=== PATIENT | male | born 1965 | race African-American/Black ===

== ENCOUNTER 2017-03-24 11:01 | Emergency (ER) | payer MEDICARE ==
--- NOTE | 2017-03-24 11:28 | ER Document Report ---
ED General - General Mode of Arrival: Ambulatory Information source: Patient, [facility] Records TRAVEL OUTSIDE OF THE [place] IN LAST 30 DAYS: No - HPI Patient complains to provider of: Chest Pain Onset: Other - 4-5 days ago Onset/Duration: Intermittent Quality of pain: Pressure Associated symptoms: Shortness of breath, Other - Difficulty breathing, Indigestion Relieved by: Supine <LYNETTE AGEE - Last Filed: 03/24/17 11:32> <CASA KIRBY - Last Filed: 03/24/17 20:31> - General Chief Complaint: Chest Pain Stated Complaint: HEART PROBLEMS Notes: Patient is a 51-year-old male, with history of CHF, hypertension, and LA, presenting to the emergency department concerned of chest pain onset 4-5 days ago. Patient describes the pain as pressure, and states that it has been present daily, but intermittent. Patient states that it is particularly bad at night when he lays down to sleep. He has difficulty sleeping secondary to difficulty breathing from the chest pressure. Patient states that it feels like when he had heart failure, but this time there is no swelling of extremities. Patient also admits to indigestion, for which he takes a medication that begins with the letter R, possibly Reglan, but he cannot remember definitively. PCP: Dr. Cisneros. (LYNETTE AGEE) - Related Data Allergies/Adverse Reactions: Penicillins Allergy (Verified 07/18/16 09:01) Past Medical History - General Information source: Patient, [facility] Records - Social History Smoking Status: Never Smoker Family History: Reviewed & Not Pertinent - Past Medical History Cardiac Medical History: Reports: Hx Congestive Heart Failure, Hx Coronary Artery Disease, Hx Heart Attack - most recent 2009, Hx Hypercholesterolemia, Hx Hypertension Past Surgical History: Reports: Hx Cardiac Surgery - Defibrilator, Hx Coronary Stent - 3 stents <LYNETTE AGEE - Last Filed: 03/24/17 11:32> Review of Systems - Review of Systems Constitutional: No symptoms reported EENT: No symptoms reported Cardiovascular: See HPI, Chest pain - Pressure Respiratory: See HPI, Short of breath, Other - Difficulty breathing while supine Gastrointestinal: See HPI, Other - Indigestion Genitourinary: No symptoms reported Male Genitourinary: No symptoms reported Musculoskeletal: No symptoms reported Skin: No symptoms reported Hematologic/Lymphatic: No symptoms reported Neurological/Psychological: No symptoms reported -: Yes All other systems reviewed and negative <LYNETTE AGEE - Last Filed: 03/24/17 11:32> Physical Exam - General General appearance: Alert - HEENT Head: Normocephalic, Atraumatic Eyes: Normal Pupils: PERRL - Respiratory Respiratory status: No respiratory distress Chest status: Other - Dysthymic Breath sounds: Normal - Cardiovascular Rhythm: Regular Heart sounds: Normal auscultation Murmur: No - Abdominal Inspection: Morbidly Obese Tenderness: Nontender - Back Back: Normal, Nontender - Extremities General upper extremity: Normal inspection, Nontender. No: Edema General lower extremity: Normal inspection, Nontender. No: Edema - Neurological Neuro grossly intact: Yes Cognition: Normal Orientation: AAOx4 [place] Coma Scale Eye Opening: Spontaneous [place] Coma Scale Verbal: Oriented Marii Coma Scale Motor: Obeys Commands [place] Coma Scale Total: 15 Speech: Normal - Psychological Associated symptoms: Normal affect, Normal mood - Skin Skin Temperature: Warm Skin Moisture: Dry Skin Color: Normal <LYNETTE AGEE - Last Filed: 03/24/17 11:32> Course <CYNDIELYNETTE - Last Filed: 03/24/17 11:32> - Laboratory Result Diagrams: 03/24/17 11:40 03/24/17 12:54 - Diagnostic Test Radiology reviewed: Reports reviewed - EKG Interpretation by Me EKG shows normal: [place]. abnormal: Intervals - Borderline prolonged QT interval , QRS Complexes - Old inferior LA. Borderline R-wave progression., ST-T Waves Rate: Normal - 96 Rhythm: A.Fib When compared to previous EKG there are: No significant change - Consults Dr. Padilla Time consulted: 18:35 Consulted provider: other - Requests bilateral lower extremity venous Dopplers, then will decide on treatment. <CASA KIRBY - Last Filed: 03/24/17 20:31> - Re-evaluation Re-evalutation: 03/24/17 18:48 Several attempts were made to get a CTA of the chest after a d-dimer came back at 3.28. IVs were started at least twice using ultrasound and the antecubital region. One kinked off when the patient flexed his arm. Second 1 was functioning fine when he went to CT and it blew when they injected the contrast. Given the difficulty in getting IVs, a pulmonary VQ scan was done. The scan was read as normal. (CASA KIRBY) - Vital Signs Vital signs: Temp Pulse Resp BP Pulse Ox 98.1 F 63 21 H 119/80 97 03/24/17 11:23 03/24/17 11:23 03/24/17 11:35 03/24/17 11:35 03/24/17 11:35 - Laboratory Laboratory results interpreted by me: 03/24/17 03/24/17 03/24/17 11:40 11:40 12:54 Hgb 13.0 L RDW 14.5 H D-Dimer 3.28 H Potassium 5.2 H BUN 28 H Creatinine 1.38 H Est GFR (Non-Af Amer) 55 L Creatine Kinase 221 H NT-Pro-B Natriuret Pep 03/24/17 12:54 Hgb RDW D-Dimer Potassium BUN Creatinine Est GFR (Non-Af Amer) Creatine Kinase NT-Pro-B Natriuret Pep 3930 H Discharge <LYNETTE AGEE - Last Filed: 03/24/17 11:32> <CASA KIRBY - Last Filed: 03/24/17 20:31> - Discharge Clinical Impression: Elevated d-dimer Chest pain Qualifiers: Chest pain type: unspecified Qualified Code(s): R07.9 - Chest pain, unspecified Dyspnea Qualifiers: Dyspnea type: shortness of breath Qualified Code(s): R06.02 - Shortness of breath Atrial fibrillation Qualifiers: Atrial fibrillation type: chronic Qualified Code(s): I48.2 - Chronic atrial fibrillation Condition: Stable Disposition: HOME, SELF-CARE Additional Instructions: Chest Pain of Unclear Cause: The exact cause of your chest pain isn't clear. Fortunately, there is no evidence of a dangerous medical condition. Further testing may be required to find the source of the pain. Most often, we find that this pain is coming from the chest wall -- the muscles or rib joints in the chest. But chest pain can come from the lung and lung lining, the esophagus, the heart valves or heart lining, and even the stomach or gallbladder. Rest. Eat lightly until the pain is gone. We may prescribe medicine for pain and inflammation. You should call the physician immediately if the pain radiates to the shoulder, jaw or arms; if you start to run a fever or develop a cough; or if you develop shortness of breath, or other new or alarming symptoms. Dyspnea, Nonspecific: You were evaluated for shortness of breath, or dyspnea. Dyspnea has many causes, and some are more serious than others. Sometimes it's impossible to diagnose the cause of dyspnea with the tests that are available on an emergency basis. Based on our evaluation today, you do not need hospitalization now. We found no evidence of pneumonia, collapsed lung, blood clots in the lung, tumors , or heart failure. Causes of non-specific dyspnea can include asthma or bronchospasm, hyperventilation, emotional distress, heart disease, emphysema, fibrosis of the lung, and stiffness of the chest wall. In healthy individuals with a single episode, it's sometimes reasonable to do nothing but wait to see if the problem occurs again. Additional tests used to evaluate dyspnea can include cardiac stress testing, echocardiography, pulmonary function testing, CAT scan of the chest, bronchoscopy or pulmonary biopsy. Return if shortness of breath persists or worsens, or if you develop chest pain, fever, cough, confusion, or fainting. TAKE THE MEDICATION PRESCRIBED. FOLLOW UP WITH DR. PADILLA IN THE NEXT 1 TO 2 DAYS FOR RECHECK. RETURN TO THE EMERGENCY ROOM IF ANY NEW OR WORSENING SYMPTOMS. Prescriptions: Apixaban [Eliquis 5 mg Tablet] 5 mg PO BID #60 tablet Referrals: JIA PADILLA MD [Primary Care Provider] - Follow up in 3-5 days Scribe Attestation: 03/24/17 20:31 I personally performed the services described in the documentation, reviewed and edited the documentation which was dictated to the scribe in my presence, and it accurately records my words and actions. (CASA KIRBY) Scribe Documentation - Scribe Written by Jerrod:: Jerrod Dawkins, 03/24/2017 [id number] acting as scribe for :: Robel <LYNETTE AGEE - Last Filed: 03/24/17 11:32>
[2017-03-24 11:55] LABS: ABSOLUTE BASOPHILS # (AUTO) 0.1 10^3/uL (0.0-0.2); ABSOLUTE EOSINOPHILS # (AUTO) 0.1 10^3/uL (0.0-0.6); ABSOLUTE LYMPHOCYTES (AUTO) 1.9 10^3/uL (0.5-4.7); ABSOLUTE MONOCYTES (AUTO) 0.7 10^3/uL (0.1-1.4); BASOPHILS % (AUTO) 1.6 % (0-2); EOSINOPHILS % (AUTO) 1.7 % (0-6); HEMATOCRIT 39.1 % (37.9-51.0); HGB HCT DIFFERENCE -0.1; LYMPHOCYTES % (AUTO) 33.1 % (13-45); MEAN CORPUSCULAR HEMOGLOBIN 28.6 pg (27.0-33.4); MEAN CORPUSCULAR HGB CONC 33.3 g/dL (32.0-36.0); MEAN CORPUSCULAR VOLUME 86 fl (80-97); MONOCYTES % (AUTO) 12.2 % (3-13); RED BLOOD COUNT 4.56 10^6/uL (4.35-5.55); RED CELL DISTRIBUTION WIDTH 14.5 % (11.5-14.0); SEGMENTED NEUTROPHILS % (AUTO) 51.4 % (42-78); WHITE BLOOD COUNT 5.9 10^3/uL (4.0-10.5)
--- NOTE | 2017-03-24 11:56 | EKG REPORT ---
SEVERITY:- ABNORMAL ECG - ATRIAL FIBRILLATION, V-RATE 73-142 INFERIOR INFARCT, AGE INDETERMINATE BORDERLINE R WAVE PROGRESSION, ANTERIOR LEADS LATERAL LEADS ARE ALSO INVOLVED BORDERLINE PROLONGED QT INTERVAL : Confirmed by: Christiano Diamond MD 24-Mar-2017 11:55:22
--- NOTE | 2017-03-24 12:09 | RADIOLOGY REPORT (SQ) ---
EXAM DESCRIPTION: CHEST SINGLE VIEW COMPLETED DATE/TIME: 03/24/2017 11:48 am REASON FOR STUDY: SOB, chest pressure COMPARISON: None. EXAM PARAMETERS: NUMBER OF VIEWS: One view. TECHNIQUE: Single frontal radiographic view of the chest acquired. RADIATION DOSE: NA LIMITATIONS: None. FINDINGS: LUNGS AND PLEURA: No opacities, masses or pneumothorax. No pleural effusion. MEDIASTINUM AND HILAR STRUCTURES: No masses. Contour normal. HEART AND VASCULAR STRUCTURES: Heart normal in size. Normal vasculature. BONES: No acute findings. HARDWARE: AICD device is unchanged in position. OTHER: No other significant finding. IMPRESSION: No significant interval change. No acute findings. Other findings as noted above. TECHNICAL DOCUMENTATION: JOB ID: [id number]
[2017-03-24 13:21] LABS: ALANINE AMINOTRANSFERASE 47 U/L (21-72); ALBUMIN 4.2 g/dL (3.5-5.0); ALKALINE PHOSPHATASE 56 U/L (38-126); ANION GAP 14 (5-19); ASPARTATE AMINO TRANSFERASE 24 U/L (17-59); BILIRUBIN,DIRECT 0.3 mg/dL (0.0-0.4); BILIRUBIN,TOTAL 0.6 mg/dL (0.2-1.3); BLOOD UREA NITROGEN 28 mg/dL (7-20); CALCIUM 9.4 mg/dL (8.4-10.2); CARBON DIOXIDE 24 mmol/L (22-30); CHLORIDE 106 mmol/L (98-107); CREATINE KINASE 221 U/L (55-170); CREATININE RESULT 1.38 mg/dL (0.52-1.25); GLUCOSE 95 mg/dL (75-110); MAGNESIUM 2.2 mg/dL (1.6-2.3); POTASSIUM 5.2 mmol/L (3.6-5.0); SODIUM 143.6 mmol/L (137-145); TOTAL PROTEIN 7.7 g/dL (6.3-8.2)
[2017-03-24 13:33] LABS: CREATINE KINASE MB 0.76 ng/mL (<4.55); TROPONIN I < 0.012 ng/mL
--- NOTE | 2017-03-24 17:55 | RADIOLOGY REPORT (SQ) ---
EXAM DESCRIPTION: NM LUNG VENT/PERF SCAN COMPLETED DATE/TIME: 03/24/2017 5:44 pm REASON FOR STUDY: SOB, elevated D-dimer COMPARISON: None. RADIONUCLIDE AND DOSE: 5 millicuries TC-99m MAA 30 millicuries TC-99m DTPA aerosol TECHNIQUE: Eight views of the lungs acquired post ventilation of DTPA aerosol. AP and PA views of t he lungs acquired following injection of MAA. LIMITATIONS: None. FINDINGS: VENTILATION: Symmetric and homogeneous distribution of DTPA aerosol during ventilatory pha se. No significant areas of photopenia. PERFUSION: Perfusion images with normal homogenous activity and no wedge-shaped or segmental defects. No ventilation-perfusion mismatches. OTHER: No other significant finding. IMPRESSION: NORMAL VENTILATION-PERFUSION LUNG SCAN. NEGATIVE FOR PULMONARY EMBOLI. TECHNICAL DOCUMENTATION: JOB ID: [id number] [employer]- All Rights Reserved
[2017-03-24] MEDS ORDERED: APIXABAN 5 MG TABLET PO ONE (20:24)
[2017-03-24 20:49] VITALS: BP 108/85
--- NOTE | 2017-03-24 20:59 | RADIOLOGY REPORT (SQ) ---
EXAM DESCRIPTION: VENOUS BILATERAL LOWER COMPLETED DATE/TIME: 03/24/2017 8:30 pm REASON FOR STUDY: SOB, elevated D-dimer COMPARISON: None. TECHNIQUE: Dynamic and static gonzalez scale and color images acquired of both lower extremity venous sy stems. Selected spectral images acquired with additional compression and augmentation maneuvers. Imag es stored on PACS. LIMITATIONS: None. FINDINGS: RIGHT LEG COMMON FEMORAL AND FEMORAL: Normal phasicity, compression and augmentation. No visualized echogenic m aterial on gonzalez scale. No defects on color images. POPLITEAL: Normal compression and augmentation. No visualized echogenic material on gonzalez scale. No de fects on color images. CALF VESSELS: Normal compression and augmentation. No visualized echogenic material on gonzalez scale. No defects on color image. GSV AND SSV: Normal compression. No visualized echogenic material on gonzalez scale. No defects on color images. ANY DEEP VENOUS INSUFFICIENCY: Not evaluated. ANY EVIDENCE OF POPLITEAL CYST: No. OTHER: No other significant finding. LEFT LEG COMMON FEMORAL AND FEMORAL: Normal phasicity, compression and augmentation. No visualized echogenic m aterial on gonzalez scale. No defects on color images. POPLITEAL: Normal compression and augmentation. No visualized echogenic material on gonzalez scale. No de fects on color images. CALF VESSELS: Normal compression and augmentation. No visualized echogenic material on gonzalez scale. No defects on color images. GSV AND SSV: Normal compression. No visualized echogenic material on gonzalez scale. No defects on color images. ANY DEEP VENOUS INSUFFICIENCY: Not evaluated. ANY EVIDENCE POPLITEAL CYST: No. OTHER: No other significant finding. IMPRESSION: NO EVIDENCE DVT OR SVT IN EITHER LEG. TECHNICAL DOCUMENTATION: JOB ID: [id number] [employer]- All Rights Reserved
== END 2017-03-24 20:49 | disposition home or self-care (01) ==
LOC: ER 11:01
DX: R79.1 Abnormal coagulation profile (principal); R07.9 Chest pain, unspecified; R06.00 Dyspnea, unspecified; R06.02 Shortness of breath; I48.2 Chronic atrial fibrillation; E66.01 Morbid (severe) obesity due to excess calories; I11.0 Hypertensive heart disease with heart failure; I50.9 Heart failure, unspecified; I25.2 Old myocardial infarction; Z88.0 Allergy status to penicillin
CPT/HCPCS: 93005; 99285; 36415; 82553; 82550; 83735; 85025; 80053; 84484; 85379; 83880; 93970; 71010; 78582; 93010; A9540; A9567; A9270; Q9969

== ENCOUNTER 2017-03-29 12:49 | Inpatient (IN) | payer MEDICARE ==
--- NOTE | 2017-03-29 13:19 | ER Document Report ---
ED Dizziness/Weakness - General Chief Complaint: Syncope Stated Complaint: DIZZINESS Time Seen by Provider: 03/29/17 13:16 Mode of Arrival: Medic Information source: Patient Notes: Pt is a 51 year old male with a history of hypertension, congestive heart failure, who presents to the ER via ems today for syncopal episode prior to arrival. Patient states that he felt fine this morning, was at home and took his [id number]-vbu-vzdzgoj gout medicine with Tylenol and Tums all at the same time, and almost immediately started feeling hot, lightheaded, started sweating and then woke up on the floor sometime later. No one was at home with him to witness this episode, he has no idea how long he was on the floor. He has never passed out before, he is taking all 3 of these medications before. He states that he feels much better now, just "drained." He states he feels "dehydrated, I am always dehydrated." He denies nausea, vomiting, shortness of breath, headache, chills., Numbness or tingling, weakness anywhere. TRAVEL OUTSIDE OF THE [place] IN LAST 30 DAYS: No - Related Data Allergies/Adverse Reactions: Penicillins Allergy (Verified 07/18/16 09:01) Past Medical History - General Information source: Patient - Social History Smoking Status: Unknown if Ever Smoked Family History: Reviewed & Not Pertinent - Past Medical History Cardiac Medical History: Reports: Hx Congestive Heart Failure, Hx Coronary Artery Disease, Hx Heart Attack - most recent 2009, Hx Hypercholesterolemia, Hx Hypertension Past Surgical History: Reports: Hx Cardiac Surgery - Defibrilator, Hx Coronary Stent - 3 stents Review of Systems - Review of Systems Constitutional: See HPI EENT: No symptoms reported Cardiovascular: No symptoms reported Respiratory: No symptoms reported Gastrointestinal: No symptoms reported Genitourinary: No symptoms reported Male Genitourinary: No symptoms reported Musculoskeletal: No symptoms reported Skin: No symptoms reported Hematologic/Lymphatic: No symptoms reported Neurological/Psychological: See HPI Physical Exam - Vital signs Vitals: Temp Pulse Resp Pulse Ox 98.7 F 73 19 95 03/29/17 12:50 03/29/17 12:50 03/29/17 12:50 03/29/17 12:50 - Notes Notes: PHYSICAL EXAMINATION: GENERAL: Tired appearing, but in no acute distress. HEAD: Atraumatic, normocephalic. EYES: Pupils equal round and reactive to light, extraocular movements intact, sclera anicteric, conjunctiva are normal. NECK: Normal range of motion, supple without lymphadenopathy LUNGS: CTAB and equal. No wheezes rales or rhonchi. HEART: Regular rate and rhythm without murmurs ABDOMEN: Soft, no tenderness. No guarding, no rebound BACK: no vertebral tenderness, normal ROM GI/: no CVA tenderness EXTREMITIES: Normal range of motion, no pitting edema. No cyanosis. NEUROLOGICAL: Good and equal strength bilaterally, normal Romberg testing, normal heel to jerez testing, cranial nerves grossly intact. Normal sensory/ motor exams. PSYCH: Normal mood, normal affect. SKIN: Warm, Dry, normal turgor, no rashes or lesions noted Course - Re-evaluation Re-evalutation: 03/29/17 14:48 pt has an STACEY with a 1.95 compared to 1.35 days ago and a completely normal creatinine and all labs prior. Due to syncopal episode and acute kidney injury , Dr. Parrish agrees to admit patient to the IMCU at this time. Patient has gotten 2 L of fluids and his blood pressure has normalized at 125/80. - Vital Signs Vital signs: Temp Pulse Resp BP Pulse Ox 98.7 F 73 20 124/85 94 03/29/17 12:50 03/29/17 12:50 03/29/17 14:02 03/29/17 14:02 03/29/17 14:02 - Laboratory Result Diagrams: 03/29/17 13:05 03/29/17 13:05 Laboratory results interpreted by me: 03/29/17 03/29/17 13:05 13:05 RBC 4.34 L Hgb 12.2 L Hct 37.3 L RDW 14.6 H BUN 37 H Creatinine 1.95 H Est GFR ( Amer) 44 L Est GFR (Non-Af Amer) 37 L Direct Bilirubin 0.5 H Creatine Kinase 230 H Discharge - Discharge Clinical Impression: STACEY (acute kidney injury), Syncope and collapse Condition: Stable Disposition: ADMITTED INPATIENT Admitting Provider: Francois Unit Admitted: [facility]
[2017-03-29 13:38] LABS: ABSOLUTE EOSINOPHILS # (AUTO) 0.1 10^3/uL (0.0-0.6); ABSOLUTE LYMPHOCYTES (AUTO) 1.2 10^3/uL (0.5-4.7); ABSOLUTE MONOCYTES (AUTO) 0.7 10^3/uL (0.1-1.4); ABSOLUTE NEUT (AUTO) 5.4 10^3/uL (1.7-8.2); BASOPHILS % (AUTO) 0.5 % (0-2); EOSINOPHILS % (AUTO) 1.9 % (0-6); HEMATOCRIT 37.3 % (37.9-51.0); HEMOGLOBIN 12.2 g/dL (13.5-17.0); HGB HCT DIFFERENCE -0.7; LYMPHOCYTES % (AUTO) 15.8 % (13-45); MEAN CORPUSCULAR HGB CONC 32.6 g/dL (32.0-36.0); MEAN CORPUSCULAR VOLUME 86 fl (80-97); MONOCYTES % (AUTO) 9.7 % (3-13); RED BLOOD COUNT 4.34 10^6/uL (4.35-5.55); RED CELL DISTRIBUTION WIDTH 14.6 % (11.5-14.0); SEGMENTED NEUTROPHILS % (AUTO) 72.1 % (42-78); WHITE BLOOD COUNT 7.5 10^3/uL (4.0-10.5)
[2017-03-29 13:51] LABS: ALANINE AMINOTRANSFERASE 64 U/L (21-72); ALBUMIN 3.5 g/dL (3.5-5.0); ALKALINE PHOSPHATASE 52 U/L (38-126); ANION GAP 12 (5-19); ASPARTATE AMINO TRANSFERASE 40 U/L (17-59); BILIRUBIN,DIRECT 0.5 mg/dL (0.0-0.4); BILIRUBIN,TOTAL 0.8 mg/dL (0.2-1.3); BLOOD UREA NITROGEN 37 mg/dL (7-20); CALCIUM 8.8 mg/dL (8.4-10.2); CARBON DIOXIDE 23 mmol/L (22-30); CHLORIDE 105 mmol/L (98-107); CREATINE KINASE 230 U/L (55-170); CREATININE RESULT 1.95 mg/dL (0.52-1.25); GLUCOSE 97 mg/dL (75-110); LIPASE 46.8 U/L (23-300); POTASSIUM 4.7 mmol/L (3.6-5.0); SODIUM 139.7 mmol/L (137-145); TOTAL PROTEIN 6.8 g/dL (6.3-8.2)
[2017-03-29] MEDS ORDERED: NORMAL SALINE 1000 ML 1,000 ML IV ONE (14:00)
[2017-03-29 14:03] LABS: CREATINE KINASE MB 0.51 ng/mL (<4.55)
[2017-03-29 14:04] LABS: TROPONIN I < 0.012 ng/mL
--- NOTE | 2017-03-29 14:23 | RADIOLOGY REPORT (SQ) ---
EXAM DESCRIPTION: CT HEAD WITHOUT COMPLETED DATE/TIME: 03/29/2017 2:15 pm REASON FOR STUDY: dizzy, weak COMPARISON: None. TECHNIQUE: Axial images acquired through the brain without intravenous contrast. Images reviewed wi th bone, brain and subdural windows. Images stored on PACS. All CT scanners at this facility use dose modulation, iterative reconstruction, and/or weight based d osing when appropriate to reduce radiation dose to as low as reasonably achievable (ALARA). [facility]: Dose Right [facility]: CareDose [facility]: Dose Right [facility]: Teradose 4D [facility]: [employer] RADIATION DOSE: 64.61 mGy. LIMITATIONS: None. FINDINGS: VENTRICLES: Normal size and contour. CEREBRUM: No masses. No hemorrhage. No midline shift. Normal gonzalez/white matter differentiation. N o evidence for acute infarction. CEREBELLUM: No masses. No hemorrhage. No alteration of density. No evidence for acute infarction. EXTRAAXIAL SPACES: No fluid collections. No masses. ORBITS AND GLOBE: No intra- or extraconal masses. Normal contour of globe without masses. CALVARIUM: No fracture. PARANASAL SINUSES: No fluid or mucosal thickening. SOFT TISSUES: No mass or hematoma. OTHER: No other significant finding. IMPRESSION: NORMAL BRAIN CT WITHOUT CONTRAST. TECHNICAL DOCUMENTATION: JOB ID: [id number] Quality ID # [id number]: Final reports with documentation of one or more dose reduction techniques (e.g., Au tomated exposure control, adjustment of the mA and/or kV according to patient size, use of iterative reconstruction technique) 2010 [employer]- All Rights Reserved
--- NOTE | 2017-03-29 14:56 | RADIOLOGY REPORT (SQ) ---
EXAM DESCRIPTION: CHEST SINGLE VIEW COMPLETED DATE/TIME: 03/29/2017 2:40 pm REASON FOR STUDY: dizziness, weak COMPARISON: 03/24/2017 EXAM PARAMETERS: NUMBER OF VIEWS: One view. TECHNIQUE: Single frontal radiographic view of the chest acquired. RADIATION DOSE: NA LIMITATIONS: None. FINDINGS: LUNGS AND PLEURA: Increased parenchymal density in the right lower lobe. No effusions. MEDIASTINUM AND HILAR STRUCTURES: No masses. Contour normal. HEART AND VASCULAR STRUCTURES: Heart normal in size. Normal vasculature. BONES: No acute findings. HARDWARE: Stable position of pacemaker. OTHER: No other significant finding. IMPRESSION: Atelectasis or early pneumonia right lower lobe. Clinical correlation is needed. TECHNICAL DOCUMENTATION: JOB ID: [id number]
[2017-03-29] MEDS ORDERED: LIDOCAINE 2% VISCOUS SOLN 20 ML UDCUP PO ONE (15:01)
[2017-03-29] MEDS ORDERED: METOCLOPRAMIDE HCL ORAL SOLN 10 MG/10 ML UDCUP PO ONE (15:01)
[2017-03-29] MEDS ORDERED: MAG HYDROX/AL HYDROX/SIMETH SUSP 30 ML UDCUP PO ONE (15:01)
[2017-03-29 16:39] LABS: URINE BARBITURATES SCREEN NEGATIVE; URINE METHADONE SCREEN NEGATIVE; URINE OPIATES LOW NEGATIVE; URINE PHENCYCLIDINE SCREEN NEGATIVE
[2017-03-29 16:49] LABS: APPEARANCE,URINE SLIGHTLY-CLOUDY; BILIRUBIN,URINE NEGATIVE (NEGATIVE); GLUCOSE, URINE NEGATIVE (NEGATIVE); KETONES,URINE NEGATIVE (NEGATIVE); LEUKOCYTE ESTERASE,URINE NEGATIVE (NEGATIVE); NITRITE,URINE NEGATIVE (NEGATIVE); PROTEIN,URINE 30 mg/dL (NEGATIVE); URINE SPECIFIC GRAVITY 1.012; UROBILINOGEN,URINE NEGATIVE mg/dL (<2.0)
--- NOTE | 2017-03-29 17:06 | EKG REPORT ---
SEVERITY:- ABNORMAL ECG - ATRIAL FIBRILLATION INFERIOR INFARCT, AGE INDETERMINATE : Confirmed by: Christiano Diamond MD 29-Mar-2017 17:05:35
[2017-03-29] MEDS ORDERED: MAG HYDROX/AL HYDROX/SIMETH SUSP 30 ML UDCUP PO PRN (18:52)
[2017-03-29] MEDS ORDERED: MAGNESIUM HYDROXIDE SUSP 30 ML UDCUP PO PRN (18:52)
[2017-03-29] MEDS ORDERED: ACETAMINOPHEN 325 MG TABLET PO PRN (18:52)
[2017-03-29] MEDS ORDERED: LEVALBUTEROL HCL NEB 0.63 MG/3 ML AMPUL NEB PRN (18:52)
[2017-03-29] MEDS ORDERED: ONDANSETRON HCL INJ/PF 4 MG/2 ML SDV IV PRN (18:52)
[2017-03-29] MEDS ORDERED: LEVALBUTEROL HCL NEB 1.25 MG/3 ML AMPUL NEB PRN (18:52)
[2017-03-29] MEDS ORDERED: FUROSEMIDE 80 MG TABLET PO ONE (19:45)
[2017-03-29] MEDS ORDERED: RIVAROXABAN 10 MG TABLET PO ONE (19:45)
--- NOTE | 2017-03-29 20:21 | EKG REPORT ---
SEVERITY:- ABNORMAL ECG - ATRIAL FIBRILLATION, V-RATE 63-139 INFERIOR INFARCT, AGE INDETERMINATE BORDERLINE R WAVE PROGRESSION, ANTERIOR LEADS : Confirmed by: Christiano Diamond MD 29-Mar-2017 20:21:04
[2017-03-29 20:34] LABS: PARTIAL THROMBOPLASTIN TIME 28.2 SEC (23.5-35.8)
[2017-03-29 20:59] LABS: CREATINE KINASE MB 0.58 ng/mL (<4.55)
[2017-03-29 21:06] LABS: TROPONIN I < 0.012 ng/mL
[2017-03-29] MEDS: ATORVASTATIN CALCIUM 10 MG TABLET PO SCH (21:41)
[2017-03-29] MEDS: CARVEDILOL 12.5 MG TABLET PO SCH (21:41)
[2017-03-29] MEDS: FAMOTIDINE 20 MG TABLET PO SCH (21:43)
[2017-03-30 02:57] LABS: CREATINE KINASE MB 0.56 ng/mL (<4.55)
[2017-03-30 02:59] LABS: TROPONIN I < 0.012 ng/mL
[2017-03-30] MEDS: LISINOPRIL 10 MG TABLET PO SCH ×3 (04:32→21:22)
--- NOTE | 2017-03-30 04:57 | RADIOLOGY REPORT (SQ) ---
EXAM DESCRIPTION: U/S RETROPERITON (RENAL/AORTA) COMPLETED DATE/TIME: 03/30/2017 4:29 am REASON FOR STUDY: IMPAIRED KIDNEY FUCNTION/PAIN COMPARISON: None. TECHNIQUE: Dynamic and static grayscale images acquired of the kidneys and bladder and recorded on P ACS. Additional selected color Doppler and spectral images recorded. LIMITATIONS: None. FINDINGS: RIGHT KIDNEY: Normal size. Incidental note is made of a 2.6 cm simple cyst. No solid or suspicious masses. No hydronephrosis. No calcifications. LEFT KIDNEY: Normal size. Normal echogenicity. No solid or suspicious masses. No hydronephrosis. No calcifications. BLADDER: No masses. OTHER FINDINGS: No other significant finding. IMPRESSION: Incidental simple cyst involving the right kidney. Otherwise unremarkable sonographic a ppearance of the kidneys and bladder. TECHNICAL DOCUMENTATION: JOB ID: [id number] [employer]- All Rights Reserved
[2017-03-30 08:12] LABS: ABSOLUTE EOSINOPHILS # (AUTO) 0.2 10^3/uL (0.0-0.6); ABSOLUTE LYMPHOCYTES (AUTO) 2.3 10^3/uL (0.5-4.7); ABSOLUTE MONOCYTES (AUTO) 0.8 10^3/uL (0.1-1.4); ABSOLUTE NEUT (AUTO) 3.5 10^3/uL (1.7-8.2); BASOPHILS % (AUTO) 0.6 % (0-2); EOSINOPHILS % (AUTO) 2.9 % (0-6); HEMATOCRIT 39.1 % (37.9-51.0); HEMOGLOBIN 12.8 g/dL (13.5-17.0); HGB HCT DIFFERENCE -0.7; MEAN CORPUSCULAR HEMOGLOBIN 28.1 pg (27.0-33.4); MEAN CORPUSCULAR HGB CONC 32.7 g/dL (32.0-36.0); MEAN CORPUSCULAR VOLUME 86 fl (80-97); MONOCYTES % (AUTO) 11.9 % (3-13); RED BLOOD COUNT 4.55 10^6/uL (4.35-5.55); RED CELL DISTRIBUTION WIDTH 14.7 % (11.5-14.0); SEGMENTED NEUTROPHILS % (AUTO) 51.6 % (42-78); WHITE BLOOD COUNT 6.9 10^3/uL (4.0-10.5)
[2017-03-30 08:27] LABS: ANION GAP 11 (5-19); BLOOD UREA NITROGEN 33 mg/dL (7-20); CALCIUM 9.1 mg/dL (8.4-10.2); CARBON DIOXIDE 23 mmol/L (22-30); CHLORIDE 106 mmol/L (98-107); CREATINE KINASE 211 U/L (55-170); CREATININE RESULT 1.39 mg/dL (0.52-1.25); GLUCOSE 94 mg/dL (75-110); PHOSPHORUS 4.4 mg/dL (2.5-4.5); POTASSIUM 4.8 mmol/L (3.6-5.0); SODIUM 139.5 mmol/L (137-145)
[2017-03-30 08:39] LABS: CREATINE KINASE MB 0.76 ng/mL (<4.55)
[2017-03-30 08:46] LABS: TROPONIN I < 0.012 ng/mL
[2017-03-30] MEDS: FUROSEMIDE 80 MG TABLET PO SCH ×2 (09:09→17:58)
[2017-03-30] MEDS: CARVEDILOL 12.5 MG TABLET PO SCH ×2 (09:09→21:22)
[2017-03-30] MEDS: DILTIAZEM HCL 120 MG CAP.SR.24H PO SCH (09:10)
[2017-03-30] MEDS: LANSOPRAZOLE 30 MG TAB.RAP.DR PO SCH (09:13)
[2017-03-30] MEDS: DOCUSATE SODIUM 100 MG CAPSULE PO SCH (09:13)
[2017-03-30] MEDS: FAMOTIDINE 20 MG TABLET PO SCH ×2 (09:13→21:20)
--- NOTE | 2017-03-30 11:17 | PDOC H&P ---
History of Present Illness Admission Date/PCP: 03/29/17 19:12 JIA SEVILLA MD History of Present Illness: ELIZABETH DEAN is a 51 year old male, he has a history of ischemic cardiomyopathy, status post AICD and pacemaker, history of chronic atrial fibrillation on chronic anticoagulant Xarelto. He came to the emergency room because he had episode of loss of consciousness associated with acute kidney injury and low blood pressure.He stated that he had what he perceived as gout , he took OTC medication. He subsequently developed severe diaphoresis, he went to the bathroom and he had episode of loss of consciousness. He also complained of orthopnea and epigastric pain, he thought the epigastric pain is due to acid reflux, he has been taking antacid with some relief of the symptoms. In the Emergency room he was evaluated, he was found to have a low blood pressure, a chest x-ray was done, it showed increased parenchymal density in the right lower lobe. There is no effusion on the chest x-ray. Past Medical History Cardiac Medical History: Reports: Atrial Fibrillation, Coronary Artery Disease, Myocardial Infarction - most recent 2009, Hyperlipidema, Hypertension, Other - Chronic systolic and diastolic heart failure Past Surgical History Past Surgical History: Reports: Cardiac Catheterization, Coronary Stent - 3 stents, Internal Defibrillator, Pacemaker Social History Smoking Status: Never Smoker Frequency of Alcohol Use: None Hx Recreational Drug Use: No Drugs: None Family History Family History: Reviewed & Not Pertinent Parental Family History Reviewed: Yes Children Family History Reviewed: Yes Sibling(s) Family History Reviewed.: Yes Medication/Allergy Home Medications: Atorvastatin Calcium [Lipitor 10 mg Tablet] 10 mg PO DAILY 03/29/17 Carvedilol [Coreg 25 mg Tablet] 25 mg PO Q12 03/29/17 Diltiazem HCl [Cardizem] 120 mg PO DAILY 03/29/17 Furosemide [Lasix 80 mg Tablet] 80 mg PO BID 03/29/17 Lisinopril [Zestril] 20 mg PO QHS 03/29/17 Lisinopril [Zestril] 40 mg PO DAILY 03/29/17 Omeprazole 40 mg PO DAILY 03/29/17 Ranitidine HCl [Zantac 150 mg Tablet] 150 mg PO QHS 03/29/17 Rivaroxaban [Xarelto] 20 mg PO DAILY 03/29/17 Allergies/Adverse Reactions: Penicillins Allergy (Verified 07/18/16 09:01) Review of Systems Constitutional: ABSENT: chills, fever(s), headache(s), weight gain, weight loss Eyes: ABSENT: visual disturbances Ears: ABSENT: hearing changes Cardiovascular: PRESENT: dyspnea on exertion, orthropnea, palpitations Respiratory: ABSENT: cough, hemoptysis Gastrointestinal: PRESENT: abdominal pain. ABSENT: constipation, diarrhea, hematemesis, hematochezia, nausea, vomiting Genitourinary: ABSENT: dysuria, hematuria Musculoskeletal: ABSENT: joint swelling Integumentary: ABSENT: rash, wounds Neurological: ABSENT: abnormal gait, abnormal speech, confusion, dizziness, focal weakness, syncope Psychiatric: ABSENT: anxiety, depression, homidical ideation, suicidal ideation Endocrine: ABSENT: cold intolerance, heat intolerance, menstrual abnormalities, polydipsia, polyuria Hematologic/Lymphatic: ABSENT: easy bleeding, easy bruising, lymphadenopathy Physical Exam Vital Signs: Temp Pulse Resp BP Pulse Ox 98.2 F 123 H 16 145/96 H 94 03/30/17 07:31 03/30/17 08:00 03/30/17 08:00 03/30/17 07:31 03/30/17 08:00 Intake & Output 03/29/17 03/30/17 03/31/17 06:59 06:59 06:59 Intake Total 605 Balance 605 Weight 153.2 kg General appearance: PRESENT: no acute distress, well-developed, well-nourished Head exam: PRESENT: atraumatic, normocephalic Eye exam: PRESENT: conjunctiva pink, EOMI, PERRLA. ABSENT: scleral icterus Ear exam: PRESENT: normal external ear exam Mouth exam: PRESENT: moist, tongue midline Neck exam: PRESENT: full ROM Respiratory exam: PRESENT: rhonchi Cardiovascular exam: PRESENT: RRR, +S1, +S2 Pulses: PRESENT: normal dorsalis pedis pul, +2 pedal pulses bilateral Vascular exam: PRESENT: normal capillary refill GI/Abdominal exam: PRESENT: normal bowel sounds, soft. ABSENT: distended, guarding, mass, organolmegaly, rebound, tenderness Rectal exam: PRESENT: deferred Neurological exam: PRESENT: alert, awake, oriented to person, oriented to place , oriented to time, oriented to situation, CN II-XII grossly intact Psychiatric exam: PRESENT: appropriate affect, normal mood Skin exam: PRESENT: dry, intact, warm Results Laboratory Results: 03/30/17 07:55 03/30/17 07:55 03/30/17 03/30/17 07:55 07:55 WBC 6.9 RBC 4.55 Hgb 12.8 L Hct 39.1 MCV 86 MCH 28.1 MCHC 32.7 RDW 14.7 H Plt Count 224 Seg Neutrophils % 51.6 Lymphocytes % 33.0 Monocytes % 11.9 Eosinophils % 2.9 Basophils % 0.6 Absolute Neutrophils 3.5 Absolute Lymphocytes 2.3 Absolute Monocytes 0.8 Absolute Eosinophils 0.2 Absolute Basophils 0.0 Sodium 139.5 Potassium 4.8 Chloride 106 Carbon Dioxide 23 Anion Gap 11 BUN 33 H Creatinine 1.39 H Est GFR ( Amer) > 60 Est GFR (Non-Af Amer) 54 L Glucose 94 Calcium 9.1 Phosphorus 4.4 03/29/17 03/29/17 03/30/17 20:07 20:07 02:15 Creatine Kinase 173 H 208 H CK-MB (CK-2) 0.58 Troponin I < 0.012 NT-Pro-B Natriuret Pep 3120 H 03/30/17 03/30/17 03/30/17 02:15 07:55 07:55 Creatine Kinase 211 H CK-MB (CK-2) 0.56 0.76 Troponin I < 0.012 < 0.012 NT-Pro-B Natriuret Pep Impressions: Chest X-Ray 03/29/17 13:18 IMPRESSION: Atelectasis or early pneumonia right lower lobe. Clinical correlation is needed. Head CT 03/29/17 13:19 IMPRESSION: NORMAL BRAIN CT WITHOUT CONTRAST. Renal Ultrasound 03/29/17 18:52 IMPRESSION: Incidental simple cyst involving the right kidney. Otherwise unremarkable sonographic appearance of the kidneys and bladder. Assessment & Plan - Diagnosis (1) Acute combined systolic and diastolic heart failure Is this a current diagnosis for this admission?: YesPlan: Patient with history of ischemic cardiomyopathy present symptoms suggest acute diastolic and systolic.He is presently on diurectic, beta iqra,ACEI/ARB. 2D echo will be ordered to assess LV function he has a history of coronary stent placement cardiac enzymes to be drawn to rule out acute myocardial infarction. (2) Chronic atrial fibrillation Is this a current diagnosis for this admission?: YesPlan: Patient is on chronic anticoagulation with Xarelto, the heart rate is high despite been on carevedilol and diltiazem (3) Acute kidney injury Is this a current diagnosis for this admission?: YesPlan: The etiology of acute kidney injury is probably hemodynamic and also diuretic use. Kidney ultrasound was normal (4) Syncope Qualifiers: Syncope type: unspecified Qualified Code(s): R55 - Syncope and collapse Is this a current diagnosis for this admission?: Yes
[2017-03-30 12:10] LABS: PROTHROMBIN TIME 18.1 SEC (11.4-15.4)
[2017-03-30 12:11] LABS: PARTIAL THROMBOPLASTIN TIME 31.7 SEC (23.5-35.8)
[2017-03-30 12:16] LABS: ANION GAP 11 (5-19); BLOOD UREA NITROGEN 31 mg/dL (7-20); CALCIUM 9.4 mg/dL (8.4-10.2); CARBON DIOXIDE 23 mmol/L (22-30); CHLORIDE 106 mmol/L (98-107); CHOLESTEROL 111.64 mg/dL (0-200); CREATININE RESULT 1.38 mg/dL (0.52-1.25); Direct HDL 40 mg/dL (>40); GLUCOSE 100 mg/dL (75-110); MAGNESIUM 2.3 mg/dL (1.6-2.3); PHOSPHORUS 4.1 mg/dL (2.5-4.5); POTASSIUM 4.7 mmol/L (3.6-5.0); SODIUM 140.4 mmol/L (137-145); TRIGLYCERIDES 76 mg/dL (<150)
--- NOTE | 2017-03-30 12:19 | RADIOLOGY REPORT (SQ) ---
EXAM DESCRIPTION: CT CHEST WITHOUT COMPLETED DATE/TIME: 03/30/2017 12:02 pm REASON FOR STUDY: abnormal CXR R/O Pneumonia COMPARISON: Chest x-ray dated 03/29/2017. TECHNIQUE: CT scan performed of the chest without intravenous contrast. Images reviewed with lung, soft tissue and bone windows. Reconstructed coronal and sagittal MPR images reviewed. All images st ored on PACS. All CT scanners at this facility use dose modulation, iterative reconstruction, and/or weight based d osing when appropriate to reduce radiation dose to as low as reasonably achievable (ALARA). [facility]: Dose Right [facility]: CareDose [facility]: Dose Right [facility]: Teradose 4D [facility]: Voxie RADIATION DOSE: 21.14 mGy. LIMITATIONS: No technical limitations. FINDINGS: LUNGS AND PLEURA: Ground-glass opacities throughout the right lung, more prominent in the right lower lobe. A few faint opacities in the left lower lobe. No large pleural effusion. No pneu mothorax. HILAR AND MEDIASTINAL STRUCTURES: No identified masses or abnormal nodes. No obvious aneurysm. HEART AND VASCULAR STRUCTURES: No aneurysm. No pericardial effusion. UPPER ABDOMEN: No significant findings. Limited exam. THYROID AND OTHER SOFT TISSUES: No masses. No adenopathy. BONES: No significant finding. Degenerative changes in the spine. HARDWARE: Defibrillator. OTHER: No other significant findings. IMPRESSION: GROUND-GLASS OPACITIES THROUGHOUT THE RIGHT LUNG PROBABLY DUE TO PNEUMONIA. ASYMMETRIC PULMONARY EDEMA COULD GIVE A SIMILAR APPEARANCE. TECHNICAL DOCUMENTATION: JOB ID: [id number] Quality ID # [id number]: Final reports with documentation of one or more dose reduction techniques (e.g., Au tomated exposure control, adjustment of the mA and/or kV according to patient size, use of iterative reconstruction technique) 2010 [employer]- All Rights Reserved
[2017-03-30 12:26] LABS: CREATINE KINASE MB 0.73 ng/mL (<4.55)
[2017-03-30 12:27] LABS: DIRECT LDL 48 mg/dL (<100)
[2017-03-30 12:31] LABS: TROPONIN I < 0.012 ng/mL
[2017-03-30] MEDS ORDERED: LEVOFLOXACIN 750 MG/D5W RTU 750 MG/150 ML RTUPB IV ONE (14:00)
[2017-03-30 17:37] LABS: TROPONIN I < 0.012 ng/mL
[2017-03-30] MEDS: RIVAROXABAN 10 MG TABLET PO SCH (17:57)
[2017-03-30] MEDS ORDERED: RIVAROXABAN 10 MG TABLET PO SCH (18:00)
[2017-03-30 20:51] LABS: APPEARANCE,URINE CLEAR; BILIRUBIN,URINE NEGATIVE (NEGATIVE); GLUCOSE, URINE NEGATIVE (NEGATIVE); KETONES,URINE NEGATIVE (NEGATIVE); LEUKOCYTE ESTERASE,URINE NEGATIVE (NEGATIVE); NITRITE,URINE NEGATIVE (NEGATIVE); PROTEIN,URINE NEGATIVE (NEGATIVE); URINE SPECIFIC GRAVITY 1.009; UROBILINOGEN,URINE NEGATIVE mg/dL (<2.0)
[2017-03-30] MEDS: ATORVASTATIN CALCIUM 10 MG TABLET PO SCH (21:20)
[2017-03-31 00:06] LABS: CREATINE KINASE MB 0.72 ng/mL (<4.55)
[2017-03-31 00:07] LABS: TROPONIN I < 0.012 ng/mL
[2017-03-31 05:55] LABS: ABSOLUTE EOSINOPHILS # (AUTO) 0.2 10^3/uL (0.0-0.6); ABSOLUTE LYMPHOCYTES (AUTO) 2.3 10^3/uL (0.5-4.7); ABSOLUTE MONOCYTES (AUTO) 0.7 10^3/uL (0.1-1.4); ABSOLUTE NEUT (AUTO) 2.7 10^3/uL (1.7-8.2); BASOPHILS % (AUTO) 0.7 % (0-2); EOSINOPHILS % (AUTO) 3.1 % (0-6); HEMATOCRIT 36.2 % (37.9-51.0); HEMOGLOBIN 11.8 g/dL (13.5-17.0); HGB HCT DIFFERENCE -0.8; LYMPHOCYTES % (AUTO) 38.5 % (13-45); MEAN CORPUSCULAR HEMOGLOBIN 28.2 pg (27.0-33.4); MEAN CORPUSCULAR HGB CONC 32.7 g/dL (32.0-36.0); MEAN CORPUSCULAR VOLUME 86 fl (80-97); MONOCYTES % (AUTO) 11.7 % (3-13); RED BLOOD COUNT 4.19 10^6/uL (4.35-5.55); RED CELL DISTRIBUTION WIDTH 14.6 % (11.5-14.0); WHITE BLOOD COUNT 5.9 10^3/uL (4.0-10.5)
[2017-03-31 06:12] LABS: ANION GAP 11 (5-19); BLOOD UREA NITROGEN 29 mg/dL (7-20); CARBON DIOXIDE 22 mmol/L (22-30); CHLORIDE 107 mmol/L (98-107); CREATININE RESULT 1.21 mg/dL (0.52-1.25); GLUCOSE 92 mg/dL (75-110); POTASSIUM 4.6 mmol/L (3.6-5.0); SODIUM 139.7 mmol/L (137-145)
[2017-03-31] MEDS: CARVEDILOL 12.5 MG TABLET PO SCH ×2 (07:38→22:21)
[2017-03-31] MEDS: FUROSEMIDE 80 MG TABLET PO SCH ×2 (07:38→18:40)
[2017-03-31] MEDS: DILTIAZEM HCL 120 MG CAP.SR.24H PO SCH (07:38)
[2017-03-31] MEDS: LISINOPRIL 10 MG TABLET PO SCH ×2 (07:39→22:20)
[2017-03-31] MEDS: DOCUSATE SODIUM 100 MG CAPSULE PO SCH (07:43)
[2017-03-31] MEDS: FAMOTIDINE 20 MG TABLET PO SCH ×2 (07:43→22:20)
[2017-03-31] MEDS: LANSOPRAZOLE 30 MG TAB.RAP.DR PO SCH (07:43)
[2017-03-31] MEDS: LEVOFLOXACIN 750 MG/D5W RTU 750 MG/150 ML RTUPB IV SCH (12:00)
--- NOTE | 2017-03-31 12:03 | PDOC PROGRESS REPORT ---
Subjective Progress Note for:: 03/31/17 Subjective:: He has CT chest without contrast yesterday,it showed ground glass opacities throughout the right lung, more prominent in the right lower lobe. If you faint opacities in the left lower lobe. No large pleural effusion no pneumothorax. 2D echocardiogram is requested but is not done yet and also barium swallow. He was seen by the bedside, Physical Exam Vital Signs: Temp Pulse Resp BP Pulse Ox 98.2 F 49 L 16 97/61 L 95 03/31/17 08:40 03/31/17 08:40 03/31/17 08:40 03/31/17 08:40 03/31/17 09:31 Intake & Output 03/30/17 03/31/17 04/01/17 06:59 06:59 06:59 Intake Total 605 1542 750 Balance 605 1542 750 Weight 153.2 kg 152 kg General appearance: PRESENT: mild distress Head exam: PRESENT: atraumatic, normocephalic Eye exam: PRESENT: conjunctiva pink, EOMI, PERRLA. ABSENT: scleral icterus Ear exam: PRESENT: normal external ear exam Mouth exam: PRESENT: moist, tongue midline Neck exam: PRESENT: full ROM. ABSENT: carotid bruit, JVD, lymphadenopathy, thyromegaly Respiratory exam: PRESENT: rhonchi Cardiovascular exam: PRESENT: RRR, +S1, +S2 Pulses: PRESENT: normal dorsalis pedis pul, +2 pedal pulses bilateral Vascular exam: PRESENT: normal capillary refill GI/Abdominal exam: PRESENT: normal bowel sounds, soft. ABSENT: distended, guarding, mass, organolmegaly, rebound, tenderness Rectal exam: PRESENT: deferred Neurological exam: PRESENT: alert, awake, oriented to person, oriented to place , oriented to time, oriented to situation, CN II-XII grossly intact Psychiatric exam: PRESENT: appropriate affect, normal mood Skin exam: PRESENT: dry, intact, warm. ABSENT: cyanosis, rash Results Laboratory Results: 03/31/17 05:16 03/31/17 05:16 03/30/17 03/30/17 03/30/17 11:44 11:44 20:30 WBC RBC Hgb Hct MCV MCH MCHC RDW Plt Count Seg Neutrophils % Lymphocytes % Monocytes % Eosinophils % Basophils % Absolute Neutrophils Absolute Lymphocytes Absolute Monocytes Absolute Eosinophils Absolute Basophils Sodium 140.4 Potassium 4.7 Chloride 106 Carbon Dioxide 23 Anion Gap 11 BUN 31 H Creatinine 1.38 H Est GFR ( Amer) > 60 Est GFR (Non-Af Amer) 55 L Glucose 100 Calcium 9.4 Phosphorus 4.1 Magnesium 2.3 Triglycerides 76 Cholesterol 111.64 LDL Cholesterol Direct 48 VLDL Cholesterol 15.0 HDL Cholesterol 40 TSH Urine Color STRAW Urine Appearance CLEAR Urine pH 5.0 Ur Specific [place] 1.009 Urine Protein NEGATIVE Urine Glucose (UA) NEGATIVE Urine Ketones NEGATIVE Urine Blood MODERATE H Urine Nitrite NEGATIVE Ur Leukocyte Esterase NEGATIVE Urine WBC (Auto) 0 Urine RBC (Auto) 1 03/31/17 03/31/17 03/31/17 05:16 05:16 05:16 WBC 5.9 RBC 4.19 L Hgb 11.8 L Hct 36.2 L MCV 86 MCH 28.2 MCHC 32.7 RDW 14.6 H Plt Count 196 Seg Neutrophils % 46.0 Lymphocytes % 38.5 Monocytes % 11.7 Eosinophils % 3.1 Basophils % 0.7 Absolute Neutrophils 2.7 Absolute Lymphocytes 2.3 Absolute Monocytes 0.7 Absolute Eosinophils 0.2 Absolute Basophils 0.0 Sodium 139.7 Potassium 4.6 Chloride 107 Carbon Dioxide 22 Anion Gap 11 BUN 29 H Creatinine 1.21 Est GFR ( Amer) > 60 Est GFR (Non-Af Amer) > 60 Glucose 92 Calcium 9.0 Phosphorus Magnesium Triglycerides Cholesterol LDL Cholesterol Direct VLDL Cholesterol HDL Cholesterol TSH 2.27 Urine Color Urine Appearance Urine pH Ur Specific [place] Urine Protein Urine Glucose (UA) Urine Ketones Urine Blood Urine Nitrite Ur Leukocyte Esterase Urine WBC (Auto) Urine RBC (Auto) 03/29/17 03/29/17 03/30/17 20:07 20:07 02:15 Creatine Kinase 173 H 208 H CK-MB (CK-2) 0.58 Troponin I < 0.012 NT-Pro-B Natriuret Pep 3120 H 03/30/17 03/30/17 03/30/17 02:15 07:55 07:55 Creatine Kinase 211 H CK-MB (CK-2) 0.56 0.76 Troponin I < 0.012 < 0.012 NT-Pro-B Natriuret Pep 03/30/17 03/30/17 03/30/17 11:44 11:44 16:54 Creatine Kinase 227 H 211 H CK-MB (CK-2) 0.73 Troponin I < 0.012 NT-Pro-B Natriuret Pep 03/30/17 03/30/17 03/30/17 16:54 23:23 23:23 Creatine Kinase 172 H CK-MB (CK-2) 0.60 0.72 Troponin I < 0.012 < 0.012 NT-Pro-B Natriuret Pep Impressions: Chest X-Ray 03/29/17 13:18 IMPRESSION: Atelectasis or early pneumonia right lower lobe. Clinical correlation is needed. Head CT 03/29/17 13:19 IMPRESSION: NORMAL BRAIN CT WITHOUT CONTRAST. Renal Ultrasound 03/29/17 18:52 IMPRESSION: Incidental simple cyst involving the right kidney. Otherwise unremarkable sonographic appearance of the kidneys and bladder. Chest CT 03/30/17 00:00 IMPRESSION: GROUND-GLASS OPACITIES THROUGHOUT THE RIGHT LUNG PROBABLY DUE TO PNEUMONIA. ASYMMETRIC PULMONARY EDEMA COULD GIVE A SIMILAR APPEARANCE. Assessment & Plan - Diagnosis (1) Acute combined systolic and diastolic heart failure Is this a current diagnosis for this admission?: Yes (2) Chronic atrial fibrillation Is this a current diagnosis for this admission?: Yes (3) Acute kidney injury Is this a current diagnosis for this admission?: Yes (4) Syncope Qualifiers: Syncope type: unspecified Qualified Code(s): R55 - Syncope and collapse Is this a current diagnosis for this admission?: Yes (5) Pneumonia Qualifiers: Pneumonia type: due to unspecified organism Laterality: right Lung location: unspecified part of lung Qualified Code(s): J18.9 - Pneumonia, unspecified organism Is this a current diagnosis for this admission?: YesPlan: Patient was started on Levaquin yesterday, IV aztreonam will be added, patient have allergy to penicillin class of drug
[2017-03-31] MEDS ORDERED: MAGNESIUM HYDROXIDE SUSP 30 ML UDCUP PO PRN (15:15)
[2017-03-31] MEDS ORDERED: MAG HYDROX/AL HYDROX/SIMETH SUSP 30 ML UDCUP PO PRN (15:15)
[2017-03-31] MEDS: AZTREONAM 1 GM in DEXTROSE 5%-WATER 50 ML IV SCH ×2 (16:00→22:28)
[2017-03-31] MEDS: RIVAROXABAN 10 MG TABLET PO SCH (18:38)
[2017-03-31] MEDS: ATORVASTATIN CALCIUM 10 MG TABLET PO SCH (22:19)
[2017-04-01 05:24] LABS: ABSOLUTE EOSINOPHILS # (AUTO) 0.2 10^3/uL (0.0-0.6); ABSOLUTE LYMPHOCYTES (AUTO) 2.4 10^3/uL (0.5-4.7); ABSOLUTE MONOCYTES (AUTO) 0.8 10^3/uL (0.1-1.4); ABSOLUTE NEUT (AUTO) 2.9 10^3/uL (1.7-8.2); BASOPHILS % (AUTO) 0.6 % (0-2); EOSINOPHILS % (AUTO) 2.9 % (0-6); HEMATOCRIT 36.7 % (37.9-51.0); HGB HCT DIFFERENCE -0.7; MEAN CORPUSCULAR HEMOGLOBIN 28.5 pg (27.0-33.4); MEAN CORPUSCULAR HGB CONC 32.7 g/dL (32.0-36.0); MEAN CORPUSCULAR VOLUME 87 fl (80-97); MONOCYTES % (AUTO) 12.3 % (3-13); RED BLOOD COUNT 4.21 10^6/uL (4.35-5.55); RED CELL DISTRIBUTION WIDTH 14.4 % (11.5-14.0); SEGMENTED NEUTROPHILS % (AUTO) 46.2 % (42-78); WHITE BLOOD COUNT 6.3 10^3/uL (4.0-10.5)
[2017-04-01 06:01] LABS: ANION GAP 11 (5-19); BLOOD UREA NITROGEN 24 mg/dL (7-20); CALCIUM 9.2 mg/dL (8.4-10.2); CARBON DIOXIDE 24 mmol/L (22-30); CHLORIDE 104 mmol/L (98-107); CREATININE RESULT 1.22 mg/dL (0.52-1.25); GLUCOSE 88 mg/dL (75-110); POTASSIUM 4.7 mmol/L (3.6-5.0); SODIUM 138.9 mmol/L (137-145)
[2017-04-01] MEDS: AZTREONAM 1 GM in DEXTROSE 5%-WATER 50 ML IV SCH ×3 (06:27→21:10)
--- NOTE | 2017-04-01 08:00 | PDOC PROGRESS REPORT ---
Subjective Progress Note for:: 04/01/17 Subjective:: Patient was admitted because of the syncopal episode and congestive heart failure and possible pneumonia. Patient have a still complaining of something heaviness on the chest and still have some difficulty in breathing. Patient also feel burning sensations on the chest. Patients have a some dry cough but no fever and no sputum production's patient also see a cardiology Dr. kelly office and recently had a pacemaker check Physical Exam Vital Signs: Temp Pulse Resp BP Pulse Ox 98.4 F 93 16 109/64 97 04/01/17 04:39 04/01/17 04:39 04/01/17 04:39 04/01/17 04:39 04/01/17 04:39 Intake & Output 03/31/17 04/01/17 04/02/17 06:59 06:59 06:59 Intake Total 1542 1820 Balance 1542 1820 Weight 152 kg 152.6 kg General appearance: PRESENT: no acute distress, well-developed, well-nourished Head exam: PRESENT: atraumatic, normocephalic Eye exam: PRESENT: conjunctiva pink, EOMI, PERRLA. ABSENT: scleral icterus Ear exam: PRESENT: normal external ear exam Mouth exam: PRESENT: moist, tongue midline Neck exam: PRESENT: full ROM. ABSENT: carotid bruit, JVD, lymphadenopathy, thyromegaly Cardiovascular exam: PRESENT: RRR. ABSENT: diastolic murmur, rubs, systolic murmur Pulses: PRESENT: normal dorsalis pedis pul, +2 pedal pulses bilateral Vascular exam: PRESENT: normal capillary refill GI/Abdominal exam: PRESENT: normal bowel sounds, soft. ABSENT: distended, guarding, mass, organolmegaly, rebound, tenderness Rectal exam: PRESENT: deferred Extremities exam: PRESENT: pedal edema Neurological exam: PRESENT: alert, awake, oriented to person, oriented to place , oriented to time, oriented to situation, CN II-XII grossly intact. ABSENT: motor sensory deficit Psychiatric exam: PRESENT: appropriate affect, normal mood. ABSENT: homicidal ideation, suicidal ideation Skin exam: PRESENT: dry, intact, warm. ABSENT: cyanosis, rash Results Laboratory Results: 04/01/17 04:22 04/01/17 04:22 04/01/17 04/01/17 04:22 04:22 WBC 6.3 RBC 4.21 L Hgb 12.0 L Hct 36.7 L MCV 87 MCH 28.5 MCHC 32.7 RDW 14.4 H Plt Count 203 Seg Neutrophils % 46.2 Lymphocytes % 38.0 Monocytes % 12.3 Eosinophils % 2.9 Basophils % 0.6 Absolute Neutrophils 2.9 Absolute Lymphocytes 2.4 Absolute Monocytes 0.8 Absolute Eosinophils 0.2 Absolute Basophils 0.0 Sodium 138.9 Potassium 4.7 Chloride 104 Carbon Dioxide 24 Anion Gap 11 BUN 24 H Creatinine 1.22 Est GFR ( Amer) > 60 Est GFR (Non-Af Amer) > 60 Glucose 88 Calcium 9.2 03/29/17 03/29/17 03/30/17 20:07 20:07 02:15 Creatine Kinase 173 H 208 H CK-MB (CK-2) 0.58 Troponin I < 0.012 NT-Pro-B Natriuret Pep 3120 H 03/30/17 03/30/17 03/30/17 02:15 07:55 07:55 Creatine Kinase 211 H CK-MB (CK-2) 0.56 0.76 Troponin I < 0.012 < 0.012 NT-Pro-B Natriuret Pep 03/30/17 03/30/17 03/30/17 11:44 11:44 16:54 Creatine Kinase 227 H 211 H CK-MB (CK-2) 0.73 Troponin I < 0.012 NT-Pro-B Natriuret Pep 03/30/17 03/30/17 03/30/17 16:54 23:23 23:23 Creatine Kinase 172 H CK-MB (CK-2) 0.60 0.72 Troponin I < 0.012 < 0.012 NT-Pro-B Natriuret Pep Impressions: Chest X-Ray 03/29/17 13:18 IMPRESSION: Atelectasis or early pneumonia right lower lobe. Clinical correlation is needed. Head CT 03/29/17 13:19 IMPRESSION: NORMAL BRAIN CT WITHOUT CONTRAST. Renal Ultrasound 03/29/17 18:52 IMPRESSION: Incidental simple cyst involving the right kidney. Otherwise unremarkable sonographic appearance of the kidneys and bladder. Chest CT 03/30/17 00:00 IMPRESSION: GROUND-GLASS OPACITIES THROUGHOUT THE RIGHT LUNG PROBABLY DUE TO PNEUMONIA. ASYMMETRIC PULMONARY EDEMA COULD GIVE A SIMILAR APPEARANCE. Assessment & Plan - Diagnosis (1) Acute combined systolic and diastolic heart failure Is this a current diagnosis for this admission?: YesPlan: Continues to Lasix and scheduled the echocardiogram and consult the cardiology (2) Chronic atrial fibrillation Is this a current diagnosis for this admission?: Yes (3) Pneumonia Qualifiers: Pneumonia type: due to unspecified organism Laterality: right Lung location: unspecified part of lung Qualified Code(s): J18.9 - Pneumonia, unspecified organism Is this a current diagnosis for this admission?: YesPlan: Patient's white count is all normal does not look like more pneumonia he still continues to cover with antibiotic (4) Syncope Qualifiers: Syncope type: unspecified Qualified Code(s): R55 - Syncope and collapse Is this a current diagnosis for this admission?: YesPlan: We will further evaluate with a cardiology standpoint the patient had already a pacemaker (5) Gastroesophageal reflux Qualifiers: Esophagitis presence: without esophagitis Qualified Code(s): K21.9 - Gastro-esophageal reflux disease without esophagitis Is this a current diagnosis for this admission?: YesPlan: Scheduled the barium swallow and continues to PPI - Time Time Spent with patient: 15-24 minutes Medications reviewed and adjusted accordingly: Yes Anticipated discharge: Home Within: Other - Inpatient Certification Medical Necessity: Need Close Monitoring Due to Risk of Patient Decompensation Post Hospital Care: D/C Admitting Supervisor Documentation - Plan Summary Plan Summary: Schedule echo and barium swallow and also consult the cardiology
--- NOTE | 2017-04-01 09:22 | RADIOLOGY REPORT (SQ) ---
EXAM DESCRIPTION: CHEST PA/LAT COMPLETED DATE/TIME: 04/01/2017 8:39 am REASON FOR STUDY: sob COMPARISON: None. NUMBER OF VIEWS: Two views. TECHNIQUE: Frontal and lateral radiographic views of the chest acquired. LIMITATIONS: None. FINDINGS: LUNGS AND PLEURA: Perihilar densities. No large pleural effusion. No pneumothorax. MEDIASTINUM AND HILAR STRUCTURES: No masses or contour abnormality. HEART AND VASCULAR STRUCTURES: Cardiac enlargement. Vascular congestion. BONES: No acute findings. HARDWARE: Defibrillator. OTHER: No other significant finding. IMPRESSION: CARDIAC ENLARGEMENT AND VASCULAR CONGESTION. PERIHILAR DENSITIES PROBABLY INDICATING PU LMONARY EDEMA. UNDERLYING PNEUMONIA CANNOT BE EXCLUDED. TECHNICAL DOCUMENTATION: JOB ID: [id number] [employer]- All Rights Reserved
[2017-04-01] MEDS: FUROSEMIDE 80 MG TABLET PO SCH ×2 (09:55→17:25)
[2017-04-01] MEDS: FAMOTIDINE 20 MG TABLET PO SCH ×2 (09:56→21:11)
[2017-04-01] MEDS: CARVEDILOL 12.5 MG TABLET PO SCH ×2 (09:56→22:30)
[2017-04-01] MEDS: DILTIAZEM HCL 120 MG CAP.SR.24H PO SCH (09:56)
[2017-04-01] MEDS: LISINOPRIL 10 MG TABLET PO SCH ×2 (09:56→22:31)
[2017-04-01] MEDS: LANSOPRAZOLE 30 MG TAB.RAP.DR PO SCH (09:57)
[2017-04-01] MEDS: LEVOFLOXACIN 750 MG/D5W RTU 750 MG/150 ML RTUPB IV SCH (09:57)
[2017-04-01] MEDS: DOCUSATE SODIUM 100 MG CAPSULE PO SCH (09:57)
--- NOTE | 2017-04-01 11:28 | RADIOLOGY REPORT (SQ) ---
EXAM DESCRIPTION: BARIUM SWALLOW ESOPHAGUS COMPLETED DATE/TIME: 04/01/2017 9:01 am REASON FOR STUDY: dysphagia COMPARISON: CT chest 03/30/2017 Two-view chest 11/22/2014 TECHNIQUE: Under fluoroscopic guidance, patient ingested effervescent granules followed by thick and thin barium. Fluoroscopic spot images and routine radiographic images acquired and stored on PACS. 12 MM BARIUM TABLET GIVEN: Yes. No significant delay in passage. LIMITATIONS: None. FLUOROSCOPY TIME: FLUORO TIME: 9 seconds 8 series of digital images saved to PACS. FINDINGS: NEUROMUSCULAR COORDINATION OF SWALLOW: Normal. No aspiration. ESOPHAGEAL MOTILITY: Normal peristalsis. No esophageal spasm. Tertiary contractions. Mild flatteni ng of the distal third of the esophagus from the left atrium. ESOPHAGEAL MUCOSA: Normal mucosa without masses or ulceration. GASTRO-ESOPHAGEAL JUNCTION: No hiatal hernia or reflux. STOMACH: Normal without masses or ulcerations. GASTRIC OUTLET: No delay in emptying. Normal pylorus. DUODENAL BULB: Normal distention. No spasm or ulceration. DUODENUM: Mucosa normal. No extrinsic masses or malrotation. PROXIMAL SMALL BOWEL: Mucosa normal. No extrinsic masses or malrotation. NON-GI TRACT STRUCTURES: No significant finding. OTHER: No other significant finding. IMPRESSION: No evidence of significant esophageal stricture or mass. COMMENT: Quality ID [id number]: Final reports for procedures using fluoroscopy that document radiation exp osure indices, or exposure time and number of fluorographic images (if radiation exposure indices are not available) TECHNICAL DOCUMENTATION: JOB ID: [id number] [employer]- All Rights Reserved
[2017-04-01] MEDS: RIVAROXABAN 10 MG TABLET PO SCH (17:24)
[2017-04-01] MEDS ORDERED: DIGOXIN INJ 0.5 MG/2 ML AMPULE ONE (21:07)
[2017-04-01] MEDS: ATORVASTATIN CALCIUM 10 MG TABLET PO SCH (21:11)
[2017-04-01] MEDS ORDERED: DIGOXIN INJ 0.5 MG/2 ML AMPULE IV ONE (21:20)
--- NOTE | 2017-04-01 23:54 | CONSULTATION REPORT E ---
Consultation Report NAME: ELIZABETH DEAN : 1965 AGE: 51Y DATE: 04/01/2017 ROOM: 314 A TO: ELISABETH MONZON M.D. FROM: JOCELYN PADILLA M.D. Requesting Physician The patient was seen from 8 a.m. to 8:40 this morning. HISTORY OF PRESENT ILLNESS: Note that the patient is admitted on 03/29/2017 with complaints of increasing shortness of breath, palpitation, PND, orthopnea, leg edema, and also chest tightness. He also on the Friday prior to his admission had an episode of syncope but he does not know how long he was on the floor. He said that he had strained to have a bowel movement and also strained to have micturition. He also felt that he felt dizzy and his low blood pressure was being low for a few days. Note that the patient used to be on Lasix 80 mg p.o. b.i.d. and he cut it down to 40 mg p.o. b.i.d. at which time he noted these symptoms of leg swelling, PND, orthopnea. He also has been having a dry cough. His chest x-ray suggests that he might have a right lower lobe early pneumonia. He denies any fever, chills, or rigors. He denies any firing of the AICD. Prior to his syncope there was no chest pain, palpitations, or increased shortness of breath. He has not had any syncopal episodes prior. He has a history of paroxysmal atrial fibrillation but back in atrial fibrillation. He in the past was placed on Eliquis but could not afford it, but later found that his insurance would allow him to take Xarelto and he has been on Xarelto 30 mg p.o. daily for the past 3 weeks at least. He denies any clear cut anginal symptoms, although he admitted shortness of breath, chest tightness. He is not able to say how long he had the chest tightness. He has never had syncopal episodes before. PAST MEDICAL HISTORY: Positive for a history of old NM in 2009 when he had a cardiac catheterization and a stent was placed in the diagonal. His EF was found to be 30% and he also had ventricular tachycardia and he had an AICD placed. He does not recollect firing of the AICD. On 10/23/2106 interrogation of the permanent pacemaker showed that he had atrial fibrillation at which time he was asked to be on anticoagulation, but the patient refused because of the cost. He denies any history of diabetes mellitus. He has a history of past hypertension but recently his blood pressure has been low, but he is on a lot of medication to get his blood pressure down. He has a history of GERD, depression. He had some symptoms suggestive of sleep apnea but he has not had a sleep study. He also has a history of cardiomyopathy with chronic systolic heart failure, now the patient presented with acute on chronic systolic and diastolic combined heart failure. He has not history of TIA or CVA. There is no history of diabetes mellitus or thyroid disease. The patient in the past had some renal insufficiency but his GFR is now normal. PAST SURGICAL HISTORY: Positive for cardiac catheterization, endoscopy, and stent placement. REVIEW OF SYSTEMS: CONSTITUTIONAL: Denies any fever, chills or rigors, but complains of generalized fatigue and weakness. HEAD: Denies any headache or head injury. He has occasional episodes of dizziness. EYES: No history of amblyopia or diplopia. No history of amaurosis fugax. EARS: No history of hearing loss. No history of tinnitus. No history of recurrent ear infections. No vertigo. NOSE: No history of nosebleeds. No history of nasal polyps. MOUTH: No history altered taste sensation, but he states that his mouth feels dry. He has no bleeding from the gums. THROAT: No odynophagia or dysphagia. No recurrent sore throats. SKIN: No psoriasis, no skin cancer, no pruritus. NECK: No history of goiter. No neck pain or enlarged swelling in the neck. LUNGS: No history of asthma or COPD. He has some symptoms of sleep apnea, but he has not had a sleep study. There is no history of pulmonary embolism. No history of hemoptysis. A recent cough dry and chest x-ray showing early infiltrate right lower lobe. He does have some orthopnea, which is recent. CARDIAC: History of coronary artery disease. History of NM. History of stent placed in the diagonal in 2009, in 2011 cath showed a patent diagonal stent. He has a history of severe LV dysfunction, LV ejection fraction of 30% with diastolic dysfunction also. He had decreased is Lasix to 40 mg p.o. b.i.d. but now he presents with PND, orthopnea, and leg edema. He also has a syncope the etiology of which is not clear. He states that his AICD was interrogated on and his episode of unconsciousness was on Friday. On he states that he was told his interrogation was good. He has a history of paroxysmal atrial fibrillation now presents with atrial fibrillation. He has palpitations every now and then, but he definitely states that he did not feel any palpitations when he had the syncopal episode. He has a history of chronic systolic heart failure with some acute exacerbations. He usually has a history of hypertension, but occasional his blood pressure becomes low and he gets dizziness. GASTROINTESTINAL: History of GERD. No history of GI bleed. No history of peptic ulcer disease. No history of fatty food intolerance. No jaundice. No GI bleed. RENAL: Past history of renal insufficiency, at present renal function is normal. He denies any hematuria, pyuria, or dysuria. METABOLIC: History of hyperlipidemia, history of gout present. In fact, the patient states after taking his gout medications all with Tylenol he felt hot, flushed but he always takes those together without any problems. MUSCULOSKELETAL: Denies arthritis or collagen vascular disease. CENTRAL NERVOUS SYSTEM: No history of TIA or CVA. No history of headaches, migraines, or seizures. No history of gait imbalance. The patient states that he has some symptoms which are suggestive of sleep apnea, but he has not had a sleep study. PSYCHIATRIC: The patient has a history of anxiety and depression, but no suicidal ideation or homicidal ideation. VASCULAR: No history of *------* or buttock claudication. No history of DVT. HEMATOLOGICAL: No history of bleeding diathesis. No history of clotting disorders. ALLERGIES: PENICILLIN. MEDICATIONS: 1. Acetaminophen 650 mg p.o. q.4 hours p.r.n. 2. Atorvastatin 10 mg p.o. at bedtime. 3. Coreg 25 mg p.o. q.12 hours. 4. Cardizem long-acting 120 mg p.o. daily. 5. Pepcid 20 mg p.o. q.12 hours. 6. Lasix 80 mg p.o. b.i.d. 7. Aztreonam 1 g IV q.8 hours. 8. Levaquin 750 mg IV daily. 9. Prevacid 30 mg p.o. daily. 10. Xopenex 1.25 mg nebulizer treatment q.4 hours. 11. Lisinopril 20 mg p.o. at bedtime and 40 mg p.o. daily in the morning. 12. Maalox Plus 15 mL p.o. q.4 hours p.r.n. 13. Magnesium 30 mL p.o. at bedtime p.r.n. 14. Normal saline at 2.5 mL IV q.8 hours. 15. Zofran 4 mg IV q.4 hours p.r.n. 16. Xarelto 20 mg p.o. q.p.m. SOCIAL HISTORY: The patient does not smoke. There is no history of EtOH abuse. FAMILY HISTORY: Positive for history of diabetes mellitus and his sister with hypertension. There is also heart disease in mother and hypertension in his father. DISCUSSION: The patient is a full code. He states that his sister is his surrogate healthcare decision maker. PHYSICAL EXAMINATION: GENERAL: On examination the patient is morbidly obese. At present in no acute distress, but does appear to be slightly anxious. He is well groomed. VITAL SIGNS: He is afebrile with a temperature of 98 degrees Fahrenheit. Pulse is 82 beats per minute, the monitor shows atrial fibrillation. Blood pressure is 113/99. Respirations are 18 per minute. Oxygen saturations are 95% on room air. HEENT: Head is atraumatic, normocephalic. Eyes: Pupils are equal, round and regular, react to light and accommodation. Extraocular movements are normal. There is no conjunctival pallor. There is no scleral icterus. Ears: Tympanic membranes are intact, external auditory canals are clear. Nose: There is no deviation of the nasal septum, there is no inflammation of the nasal mucous membranes. Mouth: Mucous membranes of the mouth are moist, tongue is moist. There are no ulcers in the mouth, there is no bleeding from the gums. Throat: There is no redness of the oropharynx. There are no exudates. SKIN: There are no skin lesions. There are no skin rashes. There is no petechiae or ecchymosis. NECK: Supple. There is no JVD. There is no goiter. Carotids are equal. There is no bruit. There is no lymphadenopathy. Trachea seems to central. LUNGS: Show a few bibasilar crackles and coarse crackles at the right base. HEART: S1, S2 is heard. There is no S3 gallop. There is no S4 gallop. There is a systolic murmur in the left sternal border and the apex. There is no rub. S1 is of variable intensity. ABDOMEN: Soft, obese, nontender. There is no hepatosplenomegaly. Bowel sounds are well heard. EXTREMITIES: Femorals are deep. Femorals are diminished. There are no femoral bruits. Leg pulses are diminished. There is mild pedal edema bilaterally without cellulitis or cyanosis. There is no DVT. There is no clubbing. CENTRAL NERVOUS SYSTEM: The patient is conscious, awake, alert and oriented x3 with no focal deficits. PSYCHIATRIC: The patient is slightly anxious but otherwise his judgment and insight are intact. PHYSICAL EXAMINATION: GENERAL: On examination the patient is in some distress. The patient is on *------* and O2. He appears to be slightly overweight and seems to be well-nourished and well-groomed. VITAL SIGNS: He is afebrile with a temperature of 97.4 degrees Fahrenheit. Pulse is 111 beats per minute, irregularly irregular. Blood pressure is 127/88. Respirations are 22 per minute. Oxygen saturations are 98% on 2 L nasal cannula. HEENT: Head is atraumatic, normocephalic. Eyes: Pupils are equal, round and regular, react to light and accommodation. Extraocular movements are normal. Ears: Tympanic membranes are intact, external auditory canals are clear. Note there is no deviation of the nasal septum, there is no inflammation of the nasal mucous membranes. Mouth: Mucous membranes of the mouth are moist, tongue is moist. There are no ulcers, there is no bleeding from the gums. Throat: There is no redness of the oropharynx. There are no exudates. NECK: Supple. There is no JVD. There is no goiter. Carotids are equal. There is no bruit. Trachea seems to central. LUNGS: At rest there is no accessory muscles of respirations but he appears to be mildly short of breath. When he talks he can talk only a few sentences. There is dullness and egophony on the right lower lobe. The rest of the lungs show a few scattered wheezing, end-expiratory. There are no rales of CHF. There is diminished air entry and prolonged expiration toward the lungs on auscultation. On percussion there is dullness in the right lower lobe but the rest of the lungs show hyperresonance. HEART: S1, S2 is heard. There is no S3 gallop. There is no S4 gallop. There is a systolic murmur in the left sternal border and the apex. There is no rub. S1 is of variable intensity. ABDOMEN: Soft, nontender. There is no hepatosplenomegaly. Bowel sounds are well heard. There are no tender areas or masses. EXTREMITIES: Femorals are diminished. There are no femoral bruits. Leg pulses are diminished. There is trace pedal edema bilaterally, the right more than left. There is no cyanosis or clubbing. There is no DVT or cellulitis. There is no calf tenderness. CENTRAL NERVOUS SYSTEM: The patient is conscious, awake, alert and oriented x3 with no focal deficits. PSYCHIATRIC: The patient appears to be slightly anxious but his judgment and insight seem to be intact. DIAGNOSTIC STUDIES: His initial chest x-ray as mentioned earlier showed suggestion of right lower lobe infiltrate. His initial EKG showed atrial fibrillation with a controlled ventricular response. His chest CT showed ground glass opacities throughout the right lung probably due to pneumonia. Asymmetric pulmonary edema could not be ruled out. His renal ultrasound shows intrinsic simple cyst involving the right kidney, otherwise unremarkable sonographic appearance of kidneys and bladder. His chest x-ray done today shows cardiac enlargement and vascular congestion, perihilar densities probably indicates pulmonary edema, underlying pneumonia cannot be excluded. The previously described right lower lobe infiltrate seems to be getting better. The patient's esophageal x-ray shows no evidence of significant esophageal stricture or mass. His troponin I is negative x3. A CPK-MB is negative also x2. His CPK is elevated at 208 and 211. The patient's sodium is 140.4, potassium 4.7, chloride 106, CO2 is 23, BUN is 31, creatinine is 1.38, GFR is greater than 60. The patient's GFR on admission was low at 44 mL. His NT-proBNP was 3120. His lipase was 46.8. His liver function tests were normal except for an elevated bilirubin of 0.5. His ProTime was 18.1 on 03/30, his INR 1.41, PTT was 31.7. His white count is 6300, hemoglobin is 12, hematocrit is 36.7, platelet count is 203,000. IMPRESSION: 1. Acute on chronic systolic and diastolic heart failure, most likely secondary to the patient's cardiomyopathy and patient's noncompliance. 2. Acute kidney injury on admission, now glomerular filtration rate is back to normal. Most likely secondary to decompensated congestive heart failure. For this congestive heart failure continue his current medications, including Coreg, FLO inhibitor, and also aspirin for his coronary artery disease along with lisinopril. Would stop the patient's Cardizem due to the patient's ischemic cardiomyopathy, left ventricular ejection fraction of 30% and history of heart failure, and Cardizem bodes a bad prognosis in these cases. 3. Syncope ? cause, it was secondary to hypotension versus atrial fibrillation with rapid ventricular response versus micturition/ micturition syncope due to straining, but micturition syncope should not last this long. The head CT does not show any cerebrovascular accident. 4. Paroxysmal atrial fibrillation. The patient is back in atrial fibrillation. 5. Right lower lobe pneumonia seems to have resolved. 6. Coronary artery disease, history of old myocardial infarction. 7. History of diagonal stent in 2009, patent by cardiac catheterization in 2011. 8. Ischemic cardiomyopathy. 9. History of chronic systolic and diastolic heart failure. 10. History of ventricular tachycardia. 11. Automatic implantable cardioverter-defibrillator with no recent firing. 12. Gout. 13. Hyperlipidemia. 14. History of gastroesophageal reflux disease. 15. Medication noncompliance. Note that the patient has been on Xarelto for at least 3 weeks for now. I would strongly recommend stopping the patient's Cardizem. If the patient's blood pressure still drops would recommend starting the patient on midodrine. We will also give some doses of digoxin to see if the heart rate can be slowed. Would have the patient's AICD interrogated again in view of the prolonged syncopal episode. Continue the patient on Xarelto for paroxysmal atrial fibrillation. We will protection of midodrine if we can increase the patient's lisinopril. Note continue the patient's antibiotics and the right lower lobe infiltrate which is much improved, it is completely cleared. Note that an echocardiogram has been ordered. I have not seen it as yet. Note the patient was seen from 8 a.m. to 8:40 a.m. with more than 50% of the time spent on direct patient care and also review of the patient's office record since he follows up in my office. His medications have been reviewed, some medication such as Cardizem will be stopped and the patient should be okay to be started on amiodarone if the patient continues to be in atrial fibrillation with rapid ventricular response. Also if the patient's blood pressure seems to be on the lower side we will consider starting the patient on midodrine. All of this was discussed with the patient and patient's sister. Also discussed with Dr. Jocelyn Padilla, the attending on the case. The issue of syncope is very confusing and the patient probably may need a 30 day event monitor even tough he has an AICD. This is a highly complex decision making case since the patient's *------*. Also would recommend that the patient has a sleep study as an outpatient. Note reason for consultation is atrial fibrillation, congestive heart failure, and syncope. DICTATING PHYSICIAN: ELISABETH MONZON M.D. [id number] Y#: [id number] ID: [id number] JOB#: [id number] ACCT: [id number] cc:ELISABETH MONZON M.D. >
[2017-04-02] MEDS: AZTREONAM 1 GM in DEXTROSE 5%-WATER 50 ML IV SCH (05:09)
[2017-04-02 06:20] LABS: ABSOLUTE EOSINOPHILS # (AUTO) 0.2 10^3/uL (0.0-0.6); ABSOLUTE LYMPHOCYTES (AUTO) 2.1 10^3/uL (0.5-4.7); ABSOLUTE MONOCYTES (AUTO) 0.7 10^3/uL (0.1-1.4); ABSOLUTE NEUT (AUTO) 3.1 10^3/uL (1.7-8.2); BASOPHILS % (AUTO) 0.7 % (0-2); EOSINOPHILS % (AUTO) 2.8 % (0-6); HEMOGLOBIN 12.1 g/dL (13.5-17.0); HGB HCT DIFFERENCE -0.7; LYMPHOCYTES % (AUTO) 34.5 % (13-45); MEAN CORPUSCULAR HEMOGLOBIN 28.2 pg (27.0-33.4); MEAN CORPUSCULAR HGB CONC 32.8 g/dL (32.0-36.0); MEAN CORPUSCULAR VOLUME 86 fl (80-97); MONOCYTES % (AUTO) 11.3 % (3-13); RED CELL DISTRIBUTION WIDTH 14.7 % (11.5-14.0); SEGMENTED NEUTROPHILS % (AUTO) 50.7 % (42-78)
[2017-04-02 06:44] LABS: ANION GAP 12 (5-19); BLOOD UREA NITROGEN 25 mg/dL (7-20); CALCIUM 8.9 mg/dL (8.4-10.2); CARBON DIOXIDE 25 mmol/L (22-30); CHLORIDE 103 mmol/L (98-107); CREATININE RESULT 1.38 mg/dL (0.52-1.25); GLUCOSE 93 mg/dL (75-110); POTASSIUM 4.6 mmol/L (3.6-5.0); SODIUM 139.8 mmol/L (137-145)
--- NOTE | 2017-04-02 09:07 | PDOC PROGRESS REPORT ---
Subjective Progress Note for:: 04/02/17 Subjective:: Patient is feeling much better. Patient's denied any chest pain denied any shortness of the breath. Patient's walk in the hallway. Patient's heart rate is still up and down. Patient seen by Dr. Cisneros Physical Exam Vital Signs: Temp Pulse Resp BP Pulse Ox 98.2 F 110 H 20 101/63 99 04/02/17 00:52 04/02/17 07:00 04/02/17 00:52 04/02/17 00:52 04/02/17 00:52 Intake & Output 04/01/17 04/02/17 04/03/17 06:59 06:59 06:59 Intake Total 1820 2160 Output Total 3350 Balance 1820 -1190 Weight 152.6 kg 152.5 kg General appearance: PRESENT: no acute distress, well-developed, well-nourished Head exam: PRESENT: atraumatic, normocephalic Eye exam: PRESENT: conjunctiva pink, EOMI, PERRLA. ABSENT: scleral icterus Ear exam: PRESENT: normal external ear exam Mouth exam: PRESENT: moist, tongue midline Neck exam: PRESENT: full ROM. ABSENT: carotid bruit, JVD, lymphadenopathy, thyromegaly Respiratory exam: PRESENT: clear to auscultation donna Cardiovascular exam: PRESENT: RRR. ABSENT: diastolic murmur, rubs, systolic murmur Pulses: PRESENT: normal dorsalis pedis pul, +2 pedal pulses bilateral Vascular exam: PRESENT: normal capillary refill GI/Abdominal exam: PRESENT: normal bowel sounds, soft. ABSENT: distended, guarding, mass, organolmegaly, rebound, tenderness Rectal exam: PRESENT: deferred Neurological exam: PRESENT: alert, awake, oriented to person, oriented to place , oriented to time, oriented to situation, CN II-XII grossly intact. ABSENT: motor sensory deficit Psychiatric exam: PRESENT: appropriate affect, normal mood. ABSENT: homicidal ideation, suicidal ideation Skin exam: PRESENT: dry, intact, warm. ABSENT: cyanosis, rash Results Laboratory Results: 04/02/17 05:42 04/02/17 05:42 04/02/17 04/02/17 05:42 05:42 WBC 6.0 RBC 4.30 L Hgb 12.1 L Hct 37.0 L MCV 86 MCH 28.2 MCHC 32.8 RDW 14.7 H Plt Count 216 Seg Neutrophils % 50.7 Lymphocytes % 34.5 Monocytes % 11.3 Eosinophils % 2.8 Basophils % 0.7 Absolute Neutrophils 3.1 Absolute Lymphocytes 2.1 Absolute Monocytes 0.7 Absolute Eosinophils 0.2 Absolute Basophils 0.0 Sodium 139.8 Potassium 4.6 Chloride 103 Carbon Dioxide 25 Anion Gap 12 BUN 25 H Creatinine 1.38 H Est GFR ( Amer) > 60 Est GFR (Non-Af Amer) 55 L Glucose 93 Calcium 8.9 03/29/17 03/29/17 03/30/17 20:07 20:07 02:15 Creatine Kinase 173 H 208 H CK-MB (CK-2) 0.58 Troponin I < 0.012 NT-Pro-B Natriuret Pep 3120 H 03/30/17 03/30/17 03/30/17 02:15 07:55 07:55 Creatine Kinase 211 H CK-MB (CK-2) 0.56 0.76 Troponin I < 0.012 < 0.012 NT-Pro-B Natriuret Pep 03/30/17 03/30/17 03/30/17 11:44 11:44 16:54 Creatine Kinase 227 H 211 H CK-MB (CK-2) 0.73 Troponin I < 0.012 NT-Pro-B Natriuret Pep 03/30/17 03/30/17 03/30/17 16:54 23:23 23:23 Creatine Kinase 172 H CK-MB (CK-2) 0.60 0.72 Troponin I < 0.012 < 0.012 NT-Pro-B Natriuret Pep Impressions: Head CT 03/29/17 13:19 IMPRESSION: NORMAL BRAIN CT WITHOUT CONTRAST. Renal Ultrasound 03/29/17 18:52 IMPRESSION: Incidental simple cyst involving the right kidney. Otherwise unremarkable sonographic appearance of the kidneys and bladder. Chest CT 03/30/17 00:00 IMPRESSION: GROUND-GLASS OPACITIES THROUGHOUT THE RIGHT LUNG PROBABLY DUE TO PNEUMONIA. ASYMMETRIC PULMONARY EDEMA COULD GIVE A SIMILAR APPEARANCE. Chest X-Ray 04/01/17 00:00 IMPRESSION: CARDIAC ENLARGEMENT AND VASCULAR CONGESTION. PERIHILAR DENSITIES PROBABLY INDICATING PULMONARY EDEMA. UNDERLYING PNEUMONIA CANNOT BE EXCLUDED. Esophagus X-Ray 04/01/17 00:00 IMPRESSION: No evidence of significant esophageal stricture or mass. Assessment & Plan - Diagnosis (1) Acute combined systolic and diastolic heart failure Is this a current diagnosis for this admission?: YesPlan: Continues Lasix (2) Chronic atrial fibrillation Is this a current diagnosis for this admission?: YesPlan: Continues Xarelto (3) Pneumonia Qualifiers: Pneumonia type: due to unspecified organism Laterality: right Lung location: unspecified part of lung Qualified Code(s): J18.9 - Pneumonia, unspecified organism Is this a current diagnosis for this admission?: YesPlan: Chest x-ray is better will switch the IV to the p.o. antibiotic (4) Syncope Qualifiers: Syncope type: unspecified Qualified Code(s): R55 - Syncope and collapse Is this a current diagnosis for this admission?: YesPlan: Follow with the cardiology (5) Gastroesophageal reflux Qualifiers: Esophagitis presence: without esophagitis Qualified Code(s): K21.9 - Gastro-esophageal reflux disease without esophagitis Is this a current diagnosis for this admission?: YesPlan: Continues to PPI - Time Time Spent with patient: 15-24 minutes Medications reviewed and adjusted accordingly: Yes Anticipated discharge: Home Within: Other - Inpatient Certification Medical Necessity: Need Close Monitoring Due to Risk of Patient Decompensation Post Hospital Care: D/C Propagation Worker Documentation - Plan Summary Plan Summary: We reduced the lisinopril from 40-10 mg with the blood pressure is running low. We will add the digoxin 0.25 mg p.o. daily and continues to current other medications. Discussed with the patient and the family in the room about the all current conditions and the test results
[2017-04-02] MEDS ORDERED: DIGOXIN 0.25 MG TABLET PO ONE (09:30)
[2017-04-02] MEDS: FUROSEMIDE 80 MG TABLET PO SCH ×2 (09:40→17:12)
[2017-04-02] MEDS: LISINOPRIL 10 MG TABLET PO SCH (09:40)
[2017-04-02] MEDS: LANSOPRAZOLE 30 MG TAB.RAP.DR PO SCH (09:40)
[2017-04-02] MEDS: CARVEDILOL 12.5 MG TABLET PO SCH ×2 (09:40→21:40)
[2017-04-02] MEDS: LEVOFLOXACIN 500 MG TABLET PO SCH (09:41)
[2017-04-02] MEDS: FAMOTIDINE 20 MG TABLET PO SCH ×2 (09:41→21:41)
[2017-04-02] MEDS: DOCUSATE SODIUM 100 MG CAPSULE PO SCH (09:42)
--- NOTE | 2017-04-02 13:41 | XCELERA REPORT ---
[address] [address] Transthoracic Echocardiogram Report Name: ELIZABETH DEAN Age: 51 yrs Gender: Male : 1965 Patient Status: Inpatient Patient Location: 3W\S\314\S\A Study Date: 04/01/2017 10:56 AM Height: 71 in Weight: 330 lb BSA: 2.6 m2 Procedure: A two-dimensional transthoracic echocardiogram with color flow and Doppler was performed. Study Quality: Technically suboptimal. Reason For Study: SOB CP ELEVATED HR History: SOB CP ELEVATED HR. Ordering Physician: JOSUE MCADAMS Performed By: Tawana Garcia Interpretation Summary The left ventricle is severely dilated. LV EF is less than 25% Left ventricular systolic function is severely reduced. There is severe global hypokinesis of the left ventricle. AICD lead in RV /RA seen The left atrium is mildly dilated. The interatrial septum is intact with no evidence for an atrial septal defect. There is no evidence of mitral valve prolapse. There is no mitral valve stenosis. There is a moderate amount of mitral regurgitation There is no aortic valve stenosis There is no LVOT obstruction. There is no tricuspid stenosis. There is a mild amount of tricuspid regurgitation There is mild pulmonary hypertension by echo RVSP is 46 mm of Hg , with RA mean of 10. There is no pericardial effusion. MMode/2D Measurements \T\ Calculations RVDd: 3.1 cm LVIDd: 6.7 cm FS: 14.0 % Ao root diam: 2.8 cm IVSd: 0.70 cm LVIDs: 5.8 cm EDV(Teich): 230.5 ml LVPWd: 0.82 cm ESV(Teich): 163.3 ml Ao root area: 6.2 cm2 EF(Teich): 29.1 % LA dimension: 4.5 cm Doppler Measurements \T\ Calculations MV E max kandice: MV P1/2t max kandice: Ao V2 max: LV V1 max P.8 cm/sec 119.0 cm/sec 90.8 cm/sec 2.4 mmHg MV A max kandice: MV P1/2t: 42.9 msec Ao max PG: LV V1 max: 35.1 cm/sec 3.3 mmHg 77.3 cm/sec MV E/A: 3.3 MVA(P1/2t): 5.1 cm2 MV dec slope: 812.9 cm/sec2 MV dec time: 0.14 sec PA V2 max: PI end-d kandice: TR max kandice: 87.7 cm/sec 161.5 cm/sec 300.0 cm/sec PA max P.1 mmHg TR max P.3 mmHg Left Ventricle The left ventricle is severely dilated. There is normal left ventricular wall thickness. LV EF is less than 25%. Left ventricular systolic function is severely reduced. Doppler measurements suggest normal left ventricular diastolic function. There is severe global hypokinesis of the left ventricle. There is no thrombus. Right Ventricle The right ventricle is not well visualized secondary to technical limitations. AICD lead in RV /RA seen. Atria The right atrium is normal in size. The left atrium is mildly dilated. The interatrial septum is intact with no evidence for an atrial septal defect. Mitral Valve There is no evidence of mitral valve prolapse. There is no vegetation seen on the mitral valve. There is no mitral valve stenosis. There is a moderate amount of mitral regurgitation. Aortic Valve There is no aortic valvular vegetation. There is no aortic valve stenosis. There is no LVOT obstruction. No aortic regurgitation is present. Tricuspid Valve There is no tricuspid stenosis. There is a mild amount of tricuspid regurgitation. There is mild pulmonary hypertension by echo. RVSP is 46 mm of Hg , with RA mean of 10. Pulmonic Valve There is no pulmonic valvular stenosis. There is a trace amount of pulmonic regurgitation. Great Vessels The aortic root is normal size. Effusions There is no pericardial effusion. : JOSUE MCADAMS > Esha Huizar
[2017-04-02] MEDS: RIVAROXABAN 10 MG TABLET PO SCH (17:11)
[2017-04-02] MEDS ORDERED: DIGOXIN INJ 0.5 MG/2 ML AMPULE IV ONE (18:45)
--- NOTE | 2017-04-02 20:23 | PROGRESS NOTE E ---
Progress Note NAME: ELIZABETH DEAN : 1965 AGE: 51Y DATE: 04/02/2017 ROOM: 314 SUBJECTIVE: The patient is seen between 12 noon and 12:30 p.m. today. The patient denies any chest pain or discomfort. The patient has a little bit of orthopnea but no PND and his leg edema is only trace. He continues to be in atrial fibrillation, at present heart rate is controlled in the 80s, but sometimes it goes up. He denies any chest pain or discomfort. There is no ventricular arrhythmia seen on the monitor. There is no firing of his AICD. OBJECTIVE: GENERAL: On examination the patient is morbidly obese. At present in no acute distress, but does appear to be slightly anxious. He is well groomed. VITAL SIGNS: He is afebrile with a temperature of 98 degrees Fahrenheit. Pulse is 82 beats per minute, the monitor shows atrial fibrillation. Blood pressure is 113/99. Respirations are 18 per minute. Oxygen saturations are 95% on room air. HEENT: Head is atraumatic, normocephalic. Eyes: Pupils are equal, round and regular, react to light and accommodation. Extraocular movements are normal. There is no conjunctival pallor. There is no scleral icterus. Ears: Tympanic membranes are intact, external auditory canals are clear. Nose: There is no deviation of the nasal septum, there is no inflammation of the nasal mucous membranes. Mouth: Mucous membranes of the mouth are moist, tongue is moist. There are no ulcers in the mouth, there is no bleeding from the gums. Throat: There is no redness of the oropharynx. There are no exudates. SKIN: There are no skin lesions. There are no skin rashes. There is no petechiae or ecchymosis. NECK: Supple. There is no JVD. There is no goiter. Carotids are equal. There is no bruit. There is no lymphadenopathy. Trachea seems to central. LUNGS: Show a few bibasilar crackles and coarse crackles at the right base. HEART: S1, S2 is heard. There is no S3 gallop. There is no S4 gallop. There is a systolic murmur in the left sternal border and the apex. There is no rub. S1 is of variable intensity. ABDOMEN: Soft, obese, nontender. There is no hepatosplenomegaly. Bowel sounds are well heard. EXTREMITIES: Femorals are deep. Femorals are diminished. There are no femoral bruits. Leg pulses are diminished. There is mild pedal edema bilaterally without cellulitis or cyanosis. There is no DVT. There is no clubbing. CENTRAL NERVOUS SYSTEM: The patient is conscious, awake, alert and oriented x3 with no focal deficits. PSYCHIATRIC: The patient is slightly anxious but otherwise his judgment and insight are intact. PHYSICAL EXAMINATION: GENERAL: On examination the patient is morbidly obese, in no acute distress. VITAL SIGNS: He is afebrile with a temperature of 98.6 degrees Fahrenheit. Pulse is 84 beats per minute. Blood pressure 97/66. Respirations are 16 per minute. Oxygen saturations are 100% on room air. HEENT: Head is atraumatic, normocephalic. Eyes: Pupils are equal, round and regular, reacted to light and accommodation. Extraocular movements are normal. ENT is negative. NECK: Supple. There is no JVD. Carotids are equal. There is no bruit. There is no goiter. There is no lymphadenopathy. Trachea is central. LUNGS: There is no accessory muscles of respirations used. He does not appear to be short of breath. The lungs are clear to auscultation and percussion. HEART: S1, S2 is heard. There is no S3 gallop. There is no S4 gallop. There is a systolic murmur in the left sternal border and the apex. There is no rub. ABDOMEN: Soft, nontender. There is no hepatosplenomegaly. Bowel sounds are well heard. There are no tender areas or masses. EXTREMITIES: Femorals are deep. There are no femoral bruits. Leg pulses are diminished. There is trace pedal edema. There is no cyanosis or clubbing. There is no DVT or cellulitis. CENTRAL NERVOUS SYSTEM: The patient is conscious, awake, alert and oriented x3 with no focal deficits. PSYCHIATRIC: The patient appears to be slightly anxious but his judgment and insight seem to be intact. DIAGNOSTIC STUDIES: He had none today. LABORATORY DATA: Show a white count of 6000, his hemoglobin is 12.1, hematocrit is 37, his platelet count is 216,000. The patient's sodium is 130.8, potassium 4.6, chloride 103, CO2 is 25, BUN is 25, creatinine is 1.38, GFR is greater than 60. His glucose is 93. His calcium is 8.9. His troponin I *------* , on the night of 03/30, it was less than 0.12. IMPRESSION: 1. ACUTE ON CHRONIC SYSTOLIC AND DIASTOLIC HEART FAILURE, MOST LIKELY SECONDARY TO THE PATIENT'S CARDIOMYOPATHY AND PATIENT'S NONCOMPLIANCE. 2. ACUTE KIDNEY INJURY ON ADMISSION, NOW GLOMERULAR FILTRATION RATE IS BACK TO NORMAL. MOST LIKELY SECONDARY TO DECOMPENSATED CONGESTIVE HEART FAILURE. Recommend continue Coreg. I agree with reducing the lisinopril since the patient's blood pressure is low. *------* the patient's Cardizem as it had been stopped. Would recommend adding spironolactone to the regimen. We will start at 25 mg p.o. daily. 3. SYNCOPE ? CAUSE, MOST LIKELY SECONDARY TO HYPOTENSION VERSUS ATRIAL FIBRILLATION WITH RAPID VENTRICULAR RESPONSE VERSUS MICTURITION/ MICTURITION SYNCOPE DUE TO STRAINING, BUT MICTURITION SYNCOPE SHOULD NOT LAST THIS LONG. 4. PAROXYSMAL ATRIAL FIBRILLATION. THE PATIENT IS BACK IN ATRIAL FIBRILLATION WITH EPISODES OF RAPID VENTRICULAR RESPONSE. The patient was given a bolus of digoxin yesterday. We will restart the patient on digoxin 0.25 mg IV daily. 5. RIGHT LOWER LOBE PNEUMONIA SEEMS TO HAVE RESOLVED. 6. CORONARY ARTERY DISEASE, HISTORY OF OLD MYOCARDIAL INFARCTION. 7. HISTORY OF DIAGONAL STENT IN 2009, PATENT BY CARDIAC CATHETERIZATION IN 2011. 8. CHEST TIGHTNESS. NO EVIDENCE OF MYOCARDIAL INFARCTION. 9. ISCHEMIC CARDIOMYOPATHY. 10. HISTORY OF CHRONIC SYSTOLIC AND DIASTOLIC HEART FAILURE. 11. HISTORY OF VENTRICULAR TACHYCARDIA. 12. AUTOMATIC IMPLANTABLE CARDIOVERTER-DEFIBRILLATOR PLACEMENT WITH NO RECENT FIRING. 13. GOUT. 14. HYPERLIPIDEMIA. 15. HISTORY OF GASTROESOPHAGEAL REFLUX DISEASE. 16. MEDICATION NONCOMPLIANCE. Continue Xarelto for the atrial fibrillation. The patient is on digoxin now. His blood pressure still remains low, would start the patient on midodrine in the morning. Also we will check the patient's digoxin level in the morning. I agree with decreasing the patient's FLO inhibitor. Continue the patient's Coreg for the patient's systolic heart failure. All of this discussed with the patient. Also the patient's symptoms suggestive of sleep apnea, would recommend that the patient have a sleep study done as an outpatient. We will arrange for this. Discussed with Dr. Padilla the attending physician. Discussed with the patient and the patient's sister. All questions were answered and medications have been reviewed. Note of this 30 minutes spent on the patient, more than 50% of the time was spent on direct patient care. We will follow with you. This is a highly complex medical decision making in views of the patient's hypotension and episodes of rapid atrial fibrillation. If the atrial fibrillation continues to be rapid and the patient's blood pressure is low then would start the patient on amiodarone. Note started the patient on spironolactone. DICTATING PHYSICIAN: ELISABETH MONZON M.D. [id number] PHY#: [id number] ID: [id number] JOB#: [id number] ACCT: [id number] cc: >
[2017-04-02] MEDS: ATORVASTATIN CALCIUM 10 MG TABLET PO SCH (21:41)
[2017-04-03 05:28] LABS: ANION GAP 12 (5-19); BLOOD UREA NITROGEN 24 mg/dL (7-20); CALCIUM 9.3 mg/dL (8.4-10.2); CARBON DIOXIDE 28 mmol/L (22-30); CHLORIDE 102 mmol/L (98-107); CREATININE RESULT 1.32 mg/dL (0.52-1.25); DIGOXIN 1.43 ng/mL (0.8-2.0); GLUCOSE 87 mg/dL (75-110); POTASSIUM 4.7 mmol/L (3.6-5.0); SODIUM 142.1 mmol/L (137-145)
[2017-04-03] MEDS ORDERED: DIGOXIN 0.25 MG TABLET PO SCH (10:00)
[2017-04-03] MEDS ORDERED: DIGOXIN INJ 0.5 MG/2 ML AMPULE IV SCH (10:00)
[2017-04-03] MEDS: DOCUSATE SODIUM 100 MG CAPSULE PO SCH (10:19)
[2017-04-03] MEDS: LANSOPRAZOLE 30 MG TAB.RAP.DR PO SCH (10:26)
[2017-04-03] MEDS: SPIRONOLACTONE 25 MG TABLET PO SCH (10:26)
[2017-04-03] MEDS: FAMOTIDINE 20 MG TABLET PO SCH ×2 (10:27→22:39)
[2017-04-03] MEDS: CARVEDILOL 12.5 MG TABLET PO SCH ×2 (10:27→22:37)
[2017-04-03] MEDS: FUROSEMIDE 80 MG TABLET PO SCH ×2 (10:28→17:46)
[2017-04-03] MEDS: LISINOPRIL 10 MG TABLET PO SCH (10:30)
[2017-04-03] MEDS: LEVOFLOXACIN 500 MG TABLET PO SCH (10:30)
--- NOTE | 2017-04-03 10:50 | PDOC PROGRESS REPORT ---
Subjective Progress Note for:: 04/03/17 Subjective:: Patient currently doing well patients denied any chest pain denied any shortness of the breath. Patient also seen by Dr. Huizar adjust the medications and suggest that we can keep the patient on the 24 hours. Discussed with the patient and her sister and discussed about the all the test results and the plan Physical Exam Vital Signs: Temp Pulse Resp BP Pulse Ox 98.4 F 44 L 19 89/74 L 98 04/03/17 08:02 04/03/17 08:02 04/03/17 08:02 04/03/17 08:02 04/03/17 08:02 Intake & Output 04/02/17 04/03/17 04/04/17 06:59 06:59 06:59 Intake Total 2160 2400 Output Total 3350 3525 Balance -1190 -1125 Weight 152.5 kg 148.8 kg General appearance: PRESENT: no acute distress, well-developed, well-nourished Head exam: PRESENT: atraumatic, normocephalic Eye exam: PRESENT: conjunctiva pink, EOMI, PERRLA. ABSENT: scleral icterus Ear exam: PRESENT: normal external ear exam Mouth exam: PRESENT: moist, tongue midline Neck exam: PRESENT: full ROM. ABSENT: carotid bruit, JVD, lymphadenopathy, thyromegaly Cardiovascular exam: PRESENT: RRR. ABSENT: diastolic murmur, rubs, systolic murmur Pulses: PRESENT: normal dorsalis pedis pul, +2 pedal pulses bilateral Vascular exam: PRESENT: normal capillary refill GI/Abdominal exam: PRESENT: normal bowel sounds, soft. ABSENT: distended, guarding, mass, organolmegaly, rebound, tenderness Rectal exam: PRESENT: deferred Neurological exam: PRESENT: alert, awake, oriented to person, oriented to place , oriented to time, oriented to situation, CN II-XII grossly intact. ABSENT: motor sensory deficit Psychiatric exam: PRESENT: appropriate affect, normal mood. ABSENT: homicidal ideation, suicidal ideation Skin exam: PRESENT: dry, intact, warm. ABSENT: cyanosis, rash Results Laboratory Results: 04/02/17 05:42 04/03/17 04:23 04/03/17 04:23 Sodium 142.1 Potassium 4.7 Chloride 102 Carbon Dioxide 28 Anion Gap 12 BUN 24 H Creatinine 1.32 H Est GFR ( Amer) > 60 Est GFR (Non-Af Amer) 57 L Glucose 87 Calcium 9.3 03/29/17 03/29/17 03/30/17 20:07 20:07 02:15 Creatine Kinase 173 H 208 H CK-MB (CK-2) 0.58 Troponin I < 0.012 NT-Pro-B Natriuret Pep 3120 H 03/30/17 03/30/17 03/30/17 02:15 07:55 07:55 Creatine Kinase 211 H CK-MB (CK-2) 0.56 0.76 Troponin I < 0.012 < 0.012 NT-Pro-B Natriuret Pep 03/30/17 03/30/17 03/30/17 11:44 11:44 16:54 Creatine Kinase 227 H 211 H CK-MB (CK-2) 0.73 Troponin I < 0.012 NT-Pro-B Natriuret Pep 03/30/17 03/30/17 03/30/17 16:54 23:23 23:23 Creatine Kinase 172 H CK-MB (CK-2) 0.60 0.72 Troponin I < 0.012 < 0.012 NT-Pro-B Natriuret Pep Impressions: Head CT 03/29/17 13:19 IMPRESSION: NORMAL BRAIN CT WITHOUT CONTRAST. Renal Ultrasound 03/29/17 18:52 IMPRESSION: Incidental simple cyst involving the right kidney. Otherwise unremarkable sonographic appearance of the kidneys and bladder. Chest CT 03/30/17 00:00 IMPRESSION: GROUND-GLASS OPACITIES THROUGHOUT THE RIGHT LUNG PROBABLY DUE TO PNEUMONIA. ASYMMETRIC PULMONARY EDEMA COULD GIVE A SIMILAR APPEARANCE. Chest X-Ray 04/01/17 00:00 IMPRESSION: CARDIAC ENLARGEMENT AND VASCULAR CONGESTION. PERIHILAR DENSITIES PROBABLY INDICATING PULMONARY EDEMA. UNDERLYING PNEUMONIA CANNOT BE EXCLUDED. Esophagus X-Ray 04/01/17 00:00 IMPRESSION: No evidence of significant esophageal stricture or mass. Assessment & Plan - Diagnosis (1) Acute combined systolic and diastolic heart failure Is this a current diagnosis for this admission?: YesPlan: Continues Lasix (2) Chronic atrial fibrillation Is this a current diagnosis for this admission?: YesPlan: Continues Xarelto (3) Pneumonia Qualifiers: Pneumonia type: due to unspecified organism Laterality: right Lung location: unspecified part of lung Qualified Code(s): J18.9 - Pneumonia, unspecified organism Is this a current diagnosis for this admission?: YesPlan: Chest x-ray is better will switch the IV to the p.o. antibiotic (4) Syncope Qualifiers: Syncope type: unspecified Qualified Code(s): R55 - Syncope and collapse Is this a current diagnosis for this admission?: YesPlan: Follow with the cardiology (5) Gastroesophageal reflux Qualifiers: Esophagitis presence: without esophagitis Qualified Code(s): K21.9 - Gastro-esophageal reflux disease without esophagitis Is this a current diagnosis for this admission?: YesPlan: Continues to PPI - Time Time Spent with patient: 15-24 minutes Medications reviewed and adjusted accordingly: Yes Anticipated discharge: Home - Plan Summary Plan Summary: Medication and follow with the Dr. Bhupendra rodriguez medications. Discussed with the patient and her sister
[2017-04-03] MEDS ORDERED: MIDODRINE HCL 5 MG TABLET PO ONE ×3 (11:30→19:30)
[2017-04-03] MEDS ORDERED: ACETAMINOPHEN 325 MG TABLET PO PRN (14:31)
--- NOTE | 2017-04-03 14:37 | RADIOLOGY REPORT (SQ) ---
EXAM DESCRIPTION: CHEST PA/LAT COMPLETED DATE/TIME: 04/03/2017 2:24 pm REASON FOR STUDY: CHF COMPARISON: CT chest 03/30/2017 Chest films 04/01/2017, 03/29/2017, 07/18/2016 EXAM PARAMETERS: NUMBER OF VIEWS: two views TECHNIQUE: Digital Frontal and Lateral radiographic views of the chest acquired. RADIATION DOSE: NA LIMITATIONS: none FINDINGS: LUNGS AND PLEURA: No opacities, masses or pneumothorax. No pleural effusion. MEDIASTINUM AND HILAR STRUCTURES: No masses or contour abnormalities. HEART AND VASCULAR STRUCTURES: Heart normal size. No evidence for failure. BONES: No acute findings. Diffuse thoracic spondylotic change HARDWARE: Left-sided pacemaker unchanged. OTHER: Barium is seen in the colon from prior cookie swallow 04/01/2017 IMPRESSION: NO SIGNIFICANT RADIOGRAPHIC FINDING IN THE CHEST. TECHNICAL DOCUMENTATION: JOB ID: [id number] [employer]- All Rights Reserved
[2017-04-03] MEDS: RIVAROXABAN 10 MG TABLET PO SCH (17:44)
--- NOTE | 2017-04-03 19:49 | PROGRESS NOTE E ---
Progress Note NAME: ELIZABETH DEAN : 1965 AGE: 51Y DATE: 04/03/2017 ROOM: 314 SUBJECTIVE: Thirty minutes spent on the patient including reviewing his medication record and adjusting his medications and adding new medications. The patient's heart rate seems to be much improved. It is in the 96 to 74 range. This is with the patient on IV digoxin along with Coreg. He is still in atrial fibrillation but there is no rapid ventricular response. His blood pressure is still low but the patient is asymptomatic from it. But this precludes starting the patient on good doses of anti-CHF medications. There is no bleeding on Xarelto. There is no PND or orthopnea. There is no chest tightness or anginal symptoms. There is no shortness of breath. His leg edema is only trace. There are no TIA or CVA symptoms. OBJECTIVE: GENERAL: On examination the patient is morbidly obese, in no acute distress. He is well groomed. He is sitting up in the chair. VITAL SIGNS: He is afebrile with a temperature of 98.3 degrees Fahrenheit. Pulse is 74 beats per minute, irregularly irregular. Blood pressure is 91/59. Respirations are 21 beats per minute. Oxygen saturations are 94% on room air. HEENT: Head is atraumatic, normocephalic. Eyes: Pupils are equal, round and regular, react to light and accommodation. Extraocular movements are normal. There is no conjunctival pallor. There is no scleral icterus. ENT is negative. NECK: Supple. There is no JVD. Carotids are equal. There is no bruit. There is no goiter. There is no lymphadenopathy. Trachea seems to central. LUNGS: Clear to auscultation and percussion. HEART: S1, S2 is heard. There is no S3 gallop. There is no S4 gallop. There is a systolic murmur in the left sternal border in the apex. There is no rub. ABDOMEN: Soft, obese, nontender. There is no hepatosplenomegaly. Bowel sounds are well heard. EXTREMITIES: Femorals are deep. Femorals are diminished. There are no femoral bruits. Leg pulses are diminished. There is trace pedal edema present bilaterally without cellulitis or cyanosis or clubbing. There is no DVT. CENTRAL NERVOUS SYSTEM: The patient is conscious, awake, alert and oriented x3 with no focal deficits. PSYCHIATRIC: The patient is slightly anxious but otherwise his judgment and insight are intact. The patient's 24-hour intake is 2400 mL, output it 3525 mL. LABORATORY DATA: The patient's *------* is 142.1, potassium is 4.7, chloride is 102, CO2 is 28. The patient's BUN is 24, creatinine is 1.32. GFR is greater than 60. His glucose is 87. His calcium is 9.3. 1. HYPOTENSION. Will start the patient on midodrine and see if this will help. 2. ACUTE KIDNEY INJURY ON ADMISSION, NOW GLOMERULAR FILTRATION RATE IS NORMAL. Recommend continue Coreg. Agree with reducing the dosing of lisinopril. Note that the patient's Cardizem has been discontinued. 3. SYNCOPE ? CAUSE, HAS NOT REOCURRED. 4. ATRIAL FIBRILLATION. THE PATIENT IN ATRIAL FIBRILLATION WITH NOW VENTRICULAR RESPONSE WELL CONTROLLED. 5. RIGHT LOWER LOBE PNEUMONIA HAS RESOLVED. 6. CORONARY ARTERY DISEASE, HISTORY OF OLD MYOCARDIAL INFARCTION. NO ANGINAL SYMPTOMS AT PRESENT. 7. HISTORY OF DIAGONAL STENT IN 2009, PATENT BY CARDIAC CATHETERIZATION IN 2011. 8. CHEST TIGHTNESS. NO EVIDENCE OF MYOCARDIAL INFARCTION. 9. ISCHEMIC CARDIOMYOPATHY WITH SEVERELY REDUCED LEFT VENTRICULAR EJECTION FRACTION. 10. HISTORY OF CHRONIC SYSTOLIC AND DIASTOLIC HEART FAILURE. 11. HISTORY OF VENTRICULAR TACHYCARDIA. 12. AUTOMATIC IMPLANTABLE CARDIOVERTER-DEFIBRILLATOR PLACEMENT WITH NO RECENT FIRING. 13. GOUT. 14. HYPERLIPIDEMIA. 15. HISTORY OF GASTROESOPHAGEAL REFLUX DISEASE. 16. MEDICATION NONCOMPLIANCE. As mentioned earlier, continue current medication. Note that the patient digoxin level is 1.43. Will continue the digoxin IV today and tomorrow will put the patient on p.o. digoxin. Continue Xarelto. Continue his Coreg. Continue lisinopril at lower dose and as mentioned earlier midodrine will be started at 5 mg p.o. t.i.d. to see if it will bring the blood pressure up. Note at total of 30 minutes spent on the patient including more than 50% of the time spent on direct patient care and also reviewing the patient's medication, adjusting the patient's medication and formulating a plan of care and also discussions with attending physician Dr. Padilla. Note the patient has multiple comorbidities, especially hypotension precluding the increased doses of anti-cardiomyopathy/anti-CHF medication. Hence, highly complex decision-making done in this case. We will follow with you. DICTATING PHYSICIAN: ELISABETH MONZON M.D. [id number] PHKevin#: [id number] ID: [id number] JOB#: [id number] ACCT: [id number] cc: >
[2017-04-03] MEDS: ATORVASTATIN CALCIUM 10 MG TABLET PO SCH (22:37)
[2017-04-04] MEDS: MIDODRINE HCL 5 MG TABLET PO SCH ×3 (06:13→22:00)
[2017-04-04 07:08] LABS: ANION GAP 9 (5-19); BLOOD UREA NITROGEN 22 mg/dL (7-20); CALCIUM 9.3 mg/dL (8.4-10.2); CARBON DIOXIDE 32 mmol/L (22-30); CHLORIDE 101 mmol/L (98-107); CREATININE RESULT 1.23 mg/dL (0.52-1.25); GLUCOSE 94 mg/dL (75-110); POTASSIUM 4.5 mmol/L (3.6-5.0); SODIUM 141.5 mmol/L (137-145)
[2017-04-04] MEDS: LEVOFLOXACIN 500 MG TABLET PO SCH (09:46)
[2017-04-04] MEDS: SPIRONOLACTONE 25 MG TABLET PO SCH (09:46)
[2017-04-04] MEDS: CARVEDILOL 12.5 MG TABLET PO SCH ×2 (09:47→22:11)
[2017-04-04] MEDS: FUROSEMIDE 80 MG TABLET PO SCH ×2 (09:47→17:08)
[2017-04-04] MEDS: LANSOPRAZOLE 30 MG TAB.RAP.DR PO SCH (09:47)
[2017-04-04] MEDS: DIGOXIN 0.25 MG TABLET PO SCH (09:47)
[2017-04-04] MEDS: FAMOTIDINE 20 MG TABLET PO SCH ×2 (09:47→22:12)
[2017-04-04] MEDS: DOCUSATE SODIUM 100 MG CAPSULE PO SCH (09:51)
[2017-04-04] MEDS: LISINOPRIL 10 MG TABLET PO SCH ×2 (11:23→22:12)
--- NOTE | 2017-04-04 13:41 | PDOC PROGRESS REPORT ---
Subjective Progress Note for:: 04/04/17 Subjective:: Patient is feeling much better chest x-ray is more clear. Patient's denied any chest pain denied any shortness of the breath. Patient was put in the midron By Dr. Tyler due to the low blood pressures. Patient was also start the p.o. digoxin's Very extensive discussed with the patient and the sister on the bedside regarding the all the patient's current condition and changing the medications Physical Exam Vital Signs: Temp Pulse Resp BP Pulse Ox 98.8 F 122 H 16 101/77 97 04/04/17 12:15 04/04/17 13:16 04/04/17 12:15 04/04/17 12:15 04/04/17 12:15 Intake & Output 04/03/17 04/04/17 04/05/17 06:59 06:59 06:59 Intake Total 2400 1538 Output Total 3525 2500 Balance -1125 -962 Weight 148.8 kg 147.8 kg General appearance: PRESENT: no acute distress, well-developed, well-nourished Head exam: PRESENT: atraumatic, normocephalic Eye exam: PRESENT: conjunctiva pink, EOMI, PERRLA. ABSENT: scleral icterus Ear exam: PRESENT: normal external ear exam Mouth exam: PRESENT: moist, tongue midline Neck exam: PRESENT: full ROM. ABSENT: carotid bruit, JVD, lymphadenopathy, thyromegaly Respiratory exam: PRESENT: clear to auscultation donna Cardiovascular exam: PRESENT: RRR. ABSENT: diastolic murmur, rubs, systolic murmur Pulses: PRESENT: normal dorsalis pedis pul, +2 pedal pulses bilateral Vascular exam: PRESENT: normal capillary refill GI/Abdominal exam: PRESENT: normal bowel sounds, soft. ABSENT: distended, guarding, mass, organolmegaly, rebound, tenderness Rectal exam: PRESENT: deferred Neurological exam: PRESENT: alert, awake, oriented to person, oriented to place , oriented to time, oriented to situation, CN II-XII grossly intact. ABSENT: motor sensory deficit Psychiatric exam: PRESENT: appropriate affect, normal mood. ABSENT: homicidal ideation, suicidal ideation Skin exam: PRESENT: dry, intact, warm. ABSENT: cyanosis, rash Results Laboratory Results: 04/02/17 05:42 04/04/17 06:47 04/04/17 06:47 Sodium 141.5 Potassium 4.5 Chloride 101 Carbon Dioxide 32 H Anion Gap 9 BUN 22 H Creatinine 1.23 Est GFR ( Amer) > 60 Est GFR (Non-Af Amer) > 60 Glucose 94 Calcium 9.3 03/29/17 03/29/17 03/30/17 20:07 20:07 02:15 Creatine Kinase 173 H 208 H CK-MB (CK-2) 0.58 Troponin I < 0.012 NT-Pro-B Natriuret Pep 3120 H 03/30/17 03/30/17 03/30/17 02:15 07:55 07:55 Creatine Kinase 211 H CK-MB (CK-2) 0.56 0.76 Troponin I < 0.012 < 0.012 NT-Pro-B Natriuret Pep 03/30/17 03/30/17 03/30/17 11:44 11:44 16:54 Creatine Kinase 227 H 211 H CK-MB (CK-2) 0.73 Troponin I < 0.012 NT-Pro-B Natriuret Pep 03/30/17 03/30/17 03/30/17 16:54 23:23 23:23 Creatine Kinase 172 H CK-MB (CK-2) 0.60 0.72 Troponin I < 0.012 < 0.012 NT-Pro-B Natriuret Pep 04/04/17 06:47 Creatine Kinase CK-MB (CK-2) Troponin I NT-Pro-B Natriuret Pep 2620 H Impressions: Head CT 03/29/17 13:19 IMPRESSION: NORMAL BRAIN CT WITHOUT CONTRAST. Renal Ultrasound 03/29/17 18:52 IMPRESSION: Incidental simple cyst involving the right kidney. Otherwise unremarkable sonographic appearance of the kidneys and bladder. Chest CT 03/30/17 00:00 IMPRESSION: GROUND-GLASS OPACITIES THROUGHOUT THE RIGHT LUNG PROBABLY DUE TO PNEUMONIA. ASYMMETRIC PULMONARY EDEMA COULD GIVE A SIMILAR APPEARANCE. Esophagus X-Ray 04/01/17 00:00 IMPRESSION: No evidence of significant esophageal stricture or mass. Chest X-Ray 04/03/17 00:00 IMPRESSION: NO SIGNIFICANT RADIOGRAPHIC FINDING IN THE CHEST. Assessment & Plan - Diagnosis (1) Acute combined systolic and diastolic heart failure Is this a current diagnosis for this admission?: YesPlan: Continues to p.o. Lasix (2) Chronic atrial fibrillation Is this a current diagnosis for this admission?: YesPlan: Continues Xarelto and p.o. digoxin's and coreg (3) Pneumonia Qualifiers: Pneumonia type: due to unspecified organism Laterality: right Lung location: unspecified part of lung Qualified Code(s): J18.9 - Pneumonia, unspecified organism Is this a current diagnosis for this admission?: YesPlan: All resolved I do not think so patient need any antibiotic on discharge (4) Syncope Qualifiers: Syncope type: unspecified Qualified Code(s): R55 - Syncope and collapse Is this a current diagnosis for this admission?: YesPlan: Follow with the cardiology (5) Gastroesophageal reflux Qualifiers: Esophagitis presence: without esophagitis Qualified Code(s): K21.9 - Gastro-esophageal reflux disease without esophagitis Is this a current diagnosis for this admission?: YesPlan: Continues to PPI - Time Time Spent with patient: 15-24 minutes Medications reviewed and adjusted accordingly: Yes Anticipated discharge: Home Within: within 48 hours - Inpatient Certification Medical Necessity: Need Close Monitoring Due to Risk of Patient Decompensation Post Hospital Care: D/C Ammonia Worker Documentation - Discussed with the patient and the sister about the all current conditions and all the test result and coordinate care with the cardiology
[2017-04-04] MEDS: RIVAROXABAN 10 MG TABLET PO SCH (17:07)
--- NOTE | 2017-04-04 20:43 | PROGRESS NOTE E ---
Progress Note NAME: ELIZABETH DEAN : 1965 AGE: 51Y DATE: 04/04/2017 ROOM: 314 SUBJECTIVE: Note, earlier with the midodrine, the patient's blood pressure was 124 systolic. Subsequently with giving him the lisinopril, the blood pressure came down to 101/77, but the patient is asymptomatic, denies any chest pain or discomfort. The patient's heart rate is controlled. There is no PND or orthopnea. There is no leg edema. There is no chest pain or chest tightness. There are no TIA or CVA symptoms. There is no bleeding on Xarelto. OBJECTIVE: VITAL SIGNS: On examination the patient is afebrile with a temperature 98.8 degrees Fahrenheit. Pulse is 83 beats per minute. Blood pressure is 101/77. Respirations are 16 per minute. O2 saturations are 97% on room air. HEAD: Atraumatic/normocephalic. EYES: The pupils are equal, round, regular, reactive to light and accommodation. Extraocular movements are normal. There is no conjunctival pallor. There is no scleral icterus. EARS, NOSE, AND THROAT: Negative. NECK: Supple. There is no JVD. Carotids are equal. There is no bruit. There is no goiter. There is no lymphadenopathy. Trachea seems to be central. LUNGS: Clear to auscultation/percussion. HEART: S1 and S2 is heard. There is no S3 gallop. There is no S4 gallop. There is a systolic murmur in the left sternal border and the apex. There is no rub. ABDOMEN: Soft, obese, nontender. There is no hepatosplenomegaly. Bowel sounds are well heard. EXTREMITIES: Femorals are deep. Femorals are diminished. There are no femoral bruits. Leg pulses are diminished. There is no pedal edema. There is no cyanosis or clubbing. There is no cellulitis. There is no DVT. CENTRAL NERVOUS SYSTEM: The patient is conscious, awake, alert, oriented x3 with no focal deficit. PSYCHIATRIC: The patient is slightly anxious, but otherwise judgement/insight are intact. INTAKE AND OUTPUT: The patient's 24-hour intake is 1538, output is 2500 mL. DIAGNOSTIC DATA: The patient's sodium is 141.5, potassium 4.5, chloride 101, CO2 is 32, the patient's BUN is 22, creatinine is 1.23, GFR is greater than 60, glucose is 94, and his calcium is 9.3. His NT-proBNP is 2620 which is much less than what it was before. IMPRESSION: 1. HYPOTENSION. The patient has had a good response to midodrine. 2. ACUTE KIDNEY INJURY ON ADMISSION. Now GFR is normal. Continue Coreg. Agree with reducing the dosage of lisinopril but actually would increase the lisinopril to 10 mg p.o. q.12 h. 3. SYNCOPE. Question all causes. Has not recurred. Most likely due to hypotension. 4. ATRIAL FIBRILLATION. The patient is in atrial fibrillation with now ventricular response well controlled. 5. RIGHT LOWER LOBE PNEUMONIA. Resolved. 6. CORONARY ARTERY DISEASE, HISTORY OF OLD MYOCARDIAL INFARCTION. No anginal symptoms at present. 7. HISTORY OF DIAGONAL STENT IN 2009, PATENT BY CARDIAC CATHETERIZATION IN 2011. 8. CHEST TIGHTNESS, NO EVIDENCE OF MYOCARDIAL INFARCTION. 9. ISCHEMIC CARDIOMYOPATHY WITH SEVERELY REDUCED LV EJECTION FRACTION. Note that the patient is on Coreg and FLO inhibitor and diuretics. Also the patient is on Digoxin which will help the systolic function as well as to keep the patient's atrial fibrillation under rate control. 10. HISTORY OF CHRONIC SYSTOLIC AND DIASTOLIC HEART FAILURE. 11. HISTORY OF VENTRICULAR TACHYCARDIA, NO RECURRENCE. 12. AUTOMATIC IMPLANTABLE CARDIOVERTER DEFIBRILLATOR PLACEMENT WITH NO RECENT FIRING. 13. GOUT. 14. HYPERLIPIDEMIA. 15. HISTORY OF GERD. 16. MEDICATION NONCOMPLIANCE. RECOMMENDATIONS: Continue the patient on the Coreg twice a day. Would continue the patient's p.o. Digoxin at 0.25 mg p.o. daily, continue Xarelto, continue aspirin. I will continue midodrine, and maybe with the help of midodrine we can increase the lisinopril to 10 mg p.o. q.12 h. and see what happens with the blood pressure. We will keep close observation on the patient's blood pressure. Also continue spironolactone and continue Lasix at 80 mg p.o. b.i.d. Note, 30 minutes were spent on this patient with more than 50% of the time spent in direct patient care, also reviewing the patient's medications and adjusting the patient's medications, and discussion with the patient and the patient's sister. The sister wanted to know what is the role of lisinopril in this case, and I told her that it is recommended for several benefits along with the beta iqra for cardiomyopathy. Discussed with Dr. Jocelyn Padilla, the attending on this case. Note, this case is of high complexity medical decision making in view of the patient's cardiomyopathy, atrial fibrillation, and the patient's hypotension which now seems to be responding to midodrine. Will follow with you. DICTATING PHYSICIAN: ELISABETH MONZON M.D. [id number] PHY#: [id number] ID: [id number] JOB#: [id number] ACCT: [id number] cc:ELISABETH MONZON M.D. >
[2017-04-04] MEDS: ATORVASTATIN CALCIUM 10 MG TABLET PO SCH (22:12)
[2017-04-05] MEDS: MIDODRINE HCL 5 MG TABLET PO SCH ×3 (06:00→21:08)
[2017-04-05] MEDS: FAMOTIDINE 20 MG TABLET PO SCH ×2 (09:40→21:07)
[2017-04-05] MEDS: LISINOPRIL 10 MG TABLET PO SCH ×2 (09:40→21:07)
[2017-04-05] MEDS: CARVEDILOL 12.5 MG TABLET PO SCH ×2 (09:41→21:07)
[2017-04-05] MEDS: DIGOXIN 0.25 MG TABLET PO SCH (09:41)
[2017-04-05] MEDS: FUROSEMIDE 80 MG TABLET PO SCH ×2 (09:41→16:43)
[2017-04-05] MEDS: LANSOPRAZOLE 30 MG TAB.RAP.DR PO SCH (09:41)
[2017-04-05] MEDS: LEVOFLOXACIN 500 MG TABLET PO SCH (09:41)
[2017-04-05] MEDS: SPIRONOLACTONE 25 MG TABLET PO SCH (09:41)
[2017-04-05] MEDS: DOCUSATE SODIUM 100 MG CAPSULE PO SCH (09:45)
--- NOTE | 2017-04-05 12:03 | PDOC PROGRESS REPORT ---
Subjective Progress Note for:: 04/05/17 Subjective:: No chest pain. Breathing is better. No fever or chills. No nausea or vomiting. Tolerating oral feeding. No abdominal pain. Physical Exam Vital Signs: Temp Pulse Resp BP Pulse Ox 98.8 F 72 16 108/52 L 97 04/05/17 08:42 04/05/17 08:42 04/05/17 08:42 04/05/17 10:00 04/05/17 08:42 Intake & Output 04/04/17 04/05/17 04/06/17 06:59 06:59 06:59 Intake Total 1538 320 Output Total 2500 2900 Balance -962 -2580 Weight 147.8 kg 147.6 kg General appearance: PRESENT: no acute distress, morbidly obese Head exam: PRESENT: atraumatic, normocephalic Eye exam: PRESENT: conjunctiva pink, EOMI, PERRLA. ABSENT: scleral icterus Respiratory exam: PRESENT: clear to auscultation donna Cardiovascular exam: PRESENT: RRR. ABSENT: diastolic murmur, rubs, systolic murmur Vascular exam: PRESENT: normal capillary refill GI/Abdominal exam: PRESENT: normal bowel sounds, soft. ABSENT: distended, guarding, mass, organolmegaly, rebound, tenderness Extremities exam: ABSENT: pedal edema Neurological exam: PRESENT: alert, awake, oriented to person, oriented to place , oriented to time, oriented to situation, CN II-XII grossly intact. ABSENT: motor sensory deficit Psychiatric exam: PRESENT: appropriate affect, normal mood. ABSENT: homicidal ideation, suicidal ideation Results Laboratory Results: 04/02/17 05:42 04/04/17 06:47 03/29/17 03/29/17 03/30/17 20:07 20:07 02:15 Creatine Kinase 173 H 208 H CK-MB (CK-2) 0.58 Troponin I < 0.012 NT-Pro-B Natriuret Pep 3120 H 03/30/17 03/30/17 03/30/17 02:15 07:55 07:55 Creatine Kinase 211 H CK-MB (CK-2) 0.56 0.76 Troponin I < 0.012 < 0.012 NT-Pro-B Natriuret Pep 05/28/17 05/28/17 05/28/17 11:44 11:44 16:54 Creatine Kinase 227 H 211 H CK-MB (CK-2) 0.73 Troponin I < 0.012 NT-Pro-B Natriuret Pep 03/30/17 03/30/17 03/30/17 16:54 23:23 23:23 Creatine Kinase 172 H CK-MB (CK-2) 0.60 0.72 Troponin I < 0.012 < 0.012 NT-Pro-B Natriuret Pep 04/04/17 06:47 Creatine Kinase CK-MB (CK-2) Troponin I NT-Pro-B Natriuret Pep 2620 H Impressions: Head CT 03/29/17 13:19 IMPRESSION: NORMAL BRAIN CT WITHOUT CONTRAST. Renal Ultrasound 03/29/17 18:52 IMPRESSION: Incidental simple cyst involving the right kidney. Otherwise unremarkable sonographic appearance of the kidneys and bladder. Chest CT 03/30/17 00:00 IMPRESSION: GROUND-GLASS OPACITIES THROUGHOUT THE RIGHT LUNG PROBABLY DUE TO PNEUMONIA. ASYMMETRIC PULMONARY EDEMA COULD GIVE A SIMILAR APPEARANCE. Esophagus X-Ray 04/01/17 00:00 IMPRESSION: No evidence of significant esophageal stricture or mass. Chest X-Ray 04/03/17 00:00 IMPRESSION: NO SIGNIFICANT RADIOGRAPHIC FINDING IN THE CHEST. Assessment & Plan - Diagnosis (1) STACEY (acute kidney injury) Is this a current diagnosis for this admission?: YesPlan: Improving renal indices. Follow up on BUN trend. creatinine and eGFR in normal range. (2) Acute combined systolic and diastolic heart failure Is this a current diagnosis for this admission?: YesPlan: Continue all current medication management (3) Chronic atrial fibrillation Is this a current diagnosis for this admission?: YesPlan: Continue on all current medication management (4) Pneumonia Qualifiers: Pneumonia type: due to unspecified organism Laterality: right Lung location: unspecified part of lung Qualified Code(s): J18.9 - Pneumonia, unspecified organism Is this a current diagnosis for this admission?: YesPlan: Continue on Oral Levofloxacin coverage. (5) Syncope and collapse Is this a current diagnosis for this admission?: YesPlan: Resolved. - Time Time Spent with patient: 25-34 minutes Medications reviewed and adjusted accordingly: Yes Anticipated discharge: Home Within: Other - Inpatient Certification Based on my medical assessment, after consideration of the patient's comorbidities, presenting symptoms, or acuity I expect that the services needed warrant INPATIENT care.: Yes I certify that my determination is in accordance with my understanding of Medicare's requirements for reasonable and necessary INPATIENT services [42 CFR 412.3e].: Yes Medical Necessity: Need Close Monitoring Due to Risk of Patient Decompensation, Need For Continuous Telemetry Monitoring, Risk of Complication if Not Cared For in Hospital Post Hospital Care: D/C Health Counselor Documentation - Plan Summary Plan Summary: See covering attending physician orders.
--- NOTE | 2017-04-05 13:44 | PROGRESS NOTE E ---
Progress Note NAME: ELIZABETH DEAN : 1965 AGE: 51Y DATE: 04/05/2017 ROOM: 314 SUBJECTIVE: The patient states he feels much better. In fact, he has PND, orthopnea, leg edema. There are no palpitations. Yesterday, he had a short run of atrial fibrillation and a brief episode of his heart rate going up into the 150's. At present, the patient's heart rate is well controlled. There is no TIA or CVA symptoms. There is no bleeding on current Xarelto. OBJECTIVE: VITAL SIGNS: On examination the patient is morbidly obese, in no acute distress. He is afebrile with a temperature of 98.8 degrees Fahrenheit, pulse is 72 beats per minute, blood pressure 108/66, respirations 16 per minute, O2 sats are 97% on room air HEAD: Atraumatic/normocephalic. EYES: The pupils are equal, round, regular, reactive to light and accommodation. There is no conjunctival pallor. There is no scleral icterus. EARS, NOSE, AND THROAT: Negative. NECK: Supple. There is no JVD. Carotids are equal. There is no bruit. There is no goiter. There is no lymphadenopathy. Trachea seems to be central. LUNGS: Clear to auscultation and percussion. HEART: S1 and S2 is heard. There is no S3 gallop. There is no S4 gallop. S1 is of variable intensity.There is a systolic murmur in the left sternal border and the apex. There is no rub. ABDOMEN: Soft and nontender. There is no hepatosplenomegaly. Bowel sounds are well heard. CENTRAL NERVOUS SYSTEM: The patient is conscious, awake, oriented x3 with no focal deficits. PSYCHIATRIC: The patient's judgment and insight are intact. His affect is normal. IMPRESSION: 1. HYPOTENSION. THE PATIENT HAS GOOD RESPONSE TO MIDODRINE. CONTINUE THE SAME. 2. ACUTE KIDNEY INJURY ON ADMISSION. NOW GFR IS NORMAL. The patient is on Lisinopril 20 mg p.o. q. 12 hours along with Coreg. 3. SYNCOPE. QUESTION OF ETIOLOGY. MOST LIKELY SECONDARY TO THE PATIENT'S UNCONTROLLED HYPERTENSION. THERE ARE NO RALES OF CHF ON EXAM. 4. ATRIAL FIBRILLATION. THE PATIENT IS IN ATRIAL FIBRILLATION NOW WITH VENTRICULAR RESPONSE WELL CONTROLLED. THE PATIENT IS OFF CARDIZEM. THE PATIENT IS ON COREG. YESTERDAY, THE PATIENT HAD A SHORT RUN OF ATRIAL FIBRILLATION WITH VENTRICULAR RESPONSE OF 150's, BUT THIS CAME BACK DOWN TO BASELINE. 5. RIGHT LOWER LOBE PNEUMONIA. RESOLVED. 6. CORONARY ARTERY DISEASE, HISTORY OF OLD MYOCARDIAL INFARCTION. NO ANGINAL SYMPTOMS AT PRESENT. 7. HISTORY OF DIAGONAL STENT IN 2009, AFTER AN SC, PATENT BY CARDIAC CATHETERIZATION IN 2011. 8. CHEST TIGHTNESS, NO EVIDENCE OF MYOCARDIAL INFARCTION. 9. ISCHEMIC CARDIOMYOPATHY WITH SEVERELY REDUCED LV EJECTION FRACTION. Recommendation: Continue Coreg, FLO inhibitor, and digoxin and Xarelto to prevent strokes. 10. HISTORY OF CHRONIC SYSTOLIC HEART FAILURE. 11. HISTORY OF VENTRICULAR TACHYCARDIA, NO RECURRENCE. 12. AICD PLACEMENT. NO RECENT FIRING OF THE AICD. 13. HISTORY OF GOUT. 14. HYPERLIPIDEMIA. 15. HISTORY OF GERD. 16. MEDICATION NONCOMPLIANCE. 17. NO DEFINITE EVIDENCE OF DECOMPENSATED CONGESTIVE HEART FAILURE AT PRESENT. RECOMMENDATIONS: Continue the patient on beta iqra, FLO inhibitor, Xarelto, aspirin, and statin. Continue digoxin at 0.25 mg p.o. daily. Note, 35 minutes were spent on this patient with more than 50% of the time spent in direct patient care and also coordinating care with other caregiving providers on the case. Discussions were made with the patient and the patient and the patient's sister and approved with the patient's consent. Will discuss the option of being referred for heart transplantation in view of the patient's young age and lack of diabetes mellitus or chronic kidney disease or such problems. All of the above was discussed with the patient and the patient's daughter. Also, time spent on discussions with the attending physician on the case. Note, would recommend strongly for the patient to have an IV Lexiscan Cardiolite stress study as an outpatient ,to make sure that the patient's chest tightness is not secondary to coronary artery disease since the patient has a history of SC in the past and diagonal stent. I have discussed the option of being referred for cardiac transplantation and the patient and the patient's sister are willing. Will continue antibiotics at present. Will continue current medications. Will follow with you. Note, medications and the patient's medication administtration record have been reviewed. DICTATING PHYSICIAN: ELISABETH MONZON M.D. [id number] PHY#: [id number] ID: [id number] JOB#: [id number] ACCT: [id number] cc: > [facility]
[2017-04-05] MEDS: RIVAROXABAN 10 MG TABLET PO SCH (16:43)
[2017-04-05] MEDS: ATORVASTATIN CALCIUM 10 MG TABLET PO SCH (21:07)
[2017-04-06] MEDS: MIDODRINE HCL 5 MG TABLET PO SCH ×2 (05:00→14:31)
[2017-04-06] MEDS: SPIRONOLACTONE 25 MG TABLET PO SCH (10:15)
[2017-04-06] MEDS: DOCUSATE SODIUM 100 MG CAPSULE PO SCH (10:15)
[2017-04-06] MEDS: CARVEDILOL 12.5 MG TABLET PO SCH ×2 (10:16→21:05)
[2017-04-06] MEDS: LISINOPRIL 10 MG TABLET PO SCH ×2 (10:17→21:06)
[2017-04-06] MEDS: DIGOXIN 0.25 MG TABLET PO SCH (10:17)
[2017-04-06] MEDS: FUROSEMIDE 80 MG TABLET PO SCH ×2 (10:17→17:39)
[2017-04-06] MEDS: LANSOPRAZOLE 30 MG TAB.RAP.DR PO SCH (10:18)
[2017-04-06] MEDS: FAMOTIDINE 20 MG TABLET PO SCH ×2 (10:18→21:05)
[2017-04-06] MEDS: LEVOFLOXACIN 500 MG TABLET PO SCH (10:18)
--- NOTE | 2017-04-06 11:41 | PDOC PROGRESS REPORT ---
Subjective Progress Note for:: 04/06/17 Subjective:: No chest pain or difficulty with breathing. No fever or chills. No nausea or vomiting. Tolerating oral feeding. No abdominal pain. Physical Exam Vital Signs: Temp Pulse Resp BP Pulse Ox 97.7 F 69 16 118/99 H 99 04/06/17 06:57 04/06/17 07:00 04/06/17 06:57 04/06/17 06:57 04/06/17 06:57 Intake & Output 04/05/17 04/06/17 04/07/17 06:59 06:59 06:59 Intake Total 320 1395 Output Total 2900 2825 Balance -2580 -1430 Weight 147.6 kg 140.6 kg Physical Exam: General appearance: PRESENT: no acute distress, morbidly obese Head exam: PRESENT: atraumatic, normocephalic Eye exam: PRESENT: conjunctiva pink, EOMI, PERRLA. ABSENT: scleral icterus Respiratory exam: PRESENT: clear to auscultation donna Cardiovascular exam: PRESENT: RRR. ABSENT: diastolic murmur, rubs, systolic murmur Vascular exam: PRESENT: normal capillary refill GI/Abdominal exam: PRESENT: normal bowel sounds, soft. ABSENT: distended, guarding, mass, organomegaly, rebound, tenderness Extremities exam: ABSENT: pedal edema Neurological exam: PRESENT: alert, awake, oriented to person, oriented to place , oriented to time, oriented to situation, CN II-XII grossly intact. ABSENT: motor sensory deficit Psychiatric exam: PRESENT: appropriate affect, normal mood. ABSENT: homicidal ideation, suicidal ideation Results Laboratory Results: 04/02/17 05:42 04/04/17 06:47 03/29/17 03/29/17 03/30/17 20:07 20:07 02:15 Creatine Kinase 173 H 208 H CK-MB (CK-2) 0.58 Troponin I < 0.012 NT-Pro-B Natriuret Pep 3120 H 03/30/17 03/30/17 03/30/17 02:15 07:55 07:55 Creatine Kinase 211 H CK-MB (CK-2) 0.56 0.76 Troponin I < 0.012 < 0.012 NT-Pro-B Natriuret Pep 03/30/17 03/30/17 03/30/17 11:44 11:44 16:54 Creatine Kinase 227 H 211 H CK-MB (CK-2) 0.73 Troponin I < 0.012 NT-Pro-B Natriuret Pep 03/30/17 03/30/17 03/30/17 16:54 23:23 23:23 Creatine Kinase 172 H CK-MB (CK-2) 0.60 0.72 Troponin I < 0.012 < 0.012 NT-Pro-B Natriuret Pep 04/04/17 06:47 Creatine Kinase CK-MB (CK-2) Troponin I NT-Pro-B Natriuret Pep 2620 H Impressions: Head CT 03/29/17 13:19 IMPRESSION: NORMAL BRAIN CT WITHOUT CONTRAST. Renal Ultrasound 03/29/17 18:52 IMPRESSION: Incidental simple cyst involving the right kidney. Otherwise unremarkable sonographic appearance of the kidneys and bladder. Chest CT 03/30/17 00:00 IMPRESSION: GROUND-GLASS OPACITIES THROUGHOUT THE RIGHT LUNG PROBABLY DUE TO PNEUMONIA. ASYMMETRIC PULMONARY EDEMA COULD GIVE A SIMILAR APPEARANCE. Esophagus X-Ray 04/01/17 00:00 IMPRESSION: No evidence of significant esophageal stricture or mass. Chest X-Ray 04/03/17 00:00 IMPRESSION: NO SIGNIFICANT RADIOGRAPHIC FINDING IN THE CHEST. Assessment & Plan - Diagnosis (1) STACEY (acute kidney injury) Is this a current diagnosis for this admission?: Yes (2) Acute combined systolic and diastolic heart failure Is this a current diagnosis for this admission?: Yes (3) Chronic atrial fibrillation Is this a current diagnosis for this admission?: Yes (4) Pneumonia Qualifiers: Pneumonia type: due to unspecified organism Laterality: right Lung location: unspecified part of lung Qualified Code(s): J18.9 - Pneumonia, unspecified organism Is this a current diagnosis for this admission?: Yes (5) Syncope and collapse Is this a current diagnosis for this admission?: Yes - Time Time Spent with patient: 25-34 minutes Medications reviewed and adjusted accordingly: Yes Anticipated discharge: Home with Homehealth Within: within 48 hours - Inpatient Certification Based on my medical assessment, after consideration of the patient's comorbidities, presenting symptoms, or acuity I expect that the services needed warrant INPATIENT care.: Yes I certify that my determination is in accordance with my understanding of Medicare's requirements for reasonable and necessary INPATIENT services [42 CFR 412.3e].: Yes Medical Necessity: Need Close Monitoring Due to Risk of Patient Decompensation, Risk of Complication if Not Cared For in Hospital Post Hospital Care: D/C Subject Scientific Research Documentation - Plan Summary Plan Summary: See covering attending physician orders
--- NOTE | 2017-04-06 15:03 | PROGRESS NOTE E ---
Progress Note NAME: ELIZABETH DEAN : 1965 AGE: 51Y DATE: 04/06/2017 ROOM: 314 SUBJECTIVE: The patient feels much better. Blood pressure is also up. He has no PND, orthopnea or leg edema. There are no palpitations. The patient's atrial fibrillation is with a controlled ventricular response. The patient denies any chest pain or discomfort. There are no TIA or CVA symptoms. There is no bleeding on current Xarelto. OBJECTIVE: GENERAL: On examination, the patient is morbidly obese, in no acute distress. VITAL SIGNS: He is afebrile with a temperature of 97.7 degrees Fahrenheit. His pulse is 83 beats per minute. Blood pressure 118/92. Respiratory rate is 16 per minute. O2 saturation is 99% on room air. HEENT: Head is atraumatic, normocephalic. Eyes, pupils are equal, round, regular, reactive to light and accommodation. There is no conjunctival pallor. There is no scleral icterus. ENT is negative. NECK: Neck is supple. There is no JVD. Carotids equal. There is no bruit. There is no goiter. There is no lymphadenopathy. Trachea is central. LUNGS: Clear to auscultation and percussion. S1, S2 are heard. There is no S3 gallop. There is no S4 gallop. S1 is of variable intensity. There is a systolic murmur in the left sternal border at the apex. There is no rub. ABDOMEN: Soft, tender, obese. There is no hepatosplenomegaly. Bowel sounds are well heard. CENTRAL NERVOUS SYSTEM: The patient is conscious, awake, alert, oriented x3 with no focal deficits. PSYCHIATRIC: The patient's judgment and insight are intact. His affect is normal. The patient's 24-hour intake is 1395 mL and output is 2825 mL. IMPRESSION: 1. HYPOTENSION. THE PATIENT HAS A GOOD RESPONSE TO MIDODRINE. HIS BLOOD PRESSURE IS NORMAL. 2. ACUTE KIDNEY INJURY ON ADMISSION. NOW THE GFR IS NORMAL. 3. SYNCOPE. MOST LIKELY SECONDARY TO HYPOTENSION. 4. ATRIAL FIBRILLATION WITH CONTROLLED VENTRICULAR RESPONSE. THE PATIENT IS ON COREG AND ALSO THE PATIENT IS ON XARELTO. 5. RIGHT LOWER LOBE PNEUMONIA, RESOLVED. 6. CORONARY ARTERY DISEASE, STABLE WITH MYOCARDIAL INFARCTION. NO ANGINAL SYMPTOMS AT PRESENT. THE PATIENT IS ON COREG AND ASPIRIN. 7. HISTORY OF DIAGONAL STENT IN 2009, AFTER AN [place], PATENT STENT SITE BY CARDIAC CATHETERIZATION IN 2011. 8. CHEST TIGHTNESS, NO EVIDENCE OF MYOCARDIAL INFARCTION. 9. ISCHEMIC CARDIOMYOPATHY WITH SEVERELY REDUCED LV EJECTION FRACTION. CONTINUE COREG, FLO INHIBITOR, DIGOXIN AND ASPIRIN. THE PATIENT IS ALSO ON XARELTO FOR HIS ATRIAL FIBRILLATION FOR STROKE PROPHYLAXIS. 10. HISTORY OF CHRONIC SYSTOLIC HEART FAILURE. 11. HISTORY OF VENTRICULAR TACHYCARDIA, NO RECURRENCE. 12. AICD PLACEMENT. NO RECENT FIRING OF THE AICD. 13. HISTORY OF GOUT. 14. HYPERLIPIDEMIA. 15. HISTORY OF GERD. 16. THERE IS NO DEFINITE EVIDENCE OF DECOMPENSATED CONGESTIVE HEART FAILURE AT PRESENT. 17. MEDICATION NONCOMPLIANCE. RECOMMENDATIONS: As stands earlier. Continue on beta iqra, FLO inhibitor and Xarelto, aspirin and statin. Continue digoxin at 0.25 mg p.o. daily. NOTE: Twenty minutes spent with this patient. More than 50% of the time spent in direct patient care and also reviewed the patient's medications and also coordinated care with other caregiving providers on the case. At present, the decision making has been relegated to a moderate complexity decision making. The patient *------* as well, the patient will be recommendedto have an IV Lexiscan Cardiolite stress test. Also, would list the patient on the transplant list in view of the patient's young age and a significant reduction in LV ejection fraction. This has been discussed with the patient and the patient's sister. DICTATING PHYSICIAN: ELISABETH MONZON M.D. [id number] PHY#: [id number] ID: [id number] JOB#: [id number] ACCT: [id number] cc: >
[2017-04-06] MEDS: RIVAROXABAN 10 MG TABLET PO SCH (17:40)
[2017-04-06] MEDS ORDERED: MIDODRINE HCL 5 MG TABLET PO ONE (19:00)
[2017-04-06] MEDS: ATORVASTATIN CALCIUM 10 MG TABLET PO SCH (21:06)
[2017-04-07] MEDS ORDERED: MIDODRINE HCL 5 MG TABLET PO SCH (06:00)
[2017-04-07] MEDS: LANSOPRAZOLE 30 MG TAB.RAP.DR PO SCH (09:17)
[2017-04-07] MEDS: CARVEDILOL 12.5 MG TABLET PO SCH (09:17)
[2017-04-07] MEDS: DOCUSATE SODIUM 100 MG CAPSULE PO SCH (09:17)
[2017-04-07 09:18] LABS: ANION GAP 13 (5-19); BLOOD UREA NITROGEN 23 mg/dL (7-20); CALCIUM 9.3 mg/dL (8.4-10.2); CARBON DIOXIDE 28 mmol/L (22-30); CHLORIDE 100 mmol/L (98-107); CREATININE RESULT 1.32 mg/dL (0.52-1.25); GLUCOSE 93 mg/dL (75-110); MAGNESIUM 2.3 mg/dL (1.6-2.3); POTASSIUM 4.5 mmol/L (3.6-5.0); SODIUM 141.3 mmol/L (137-145)
[2017-04-07] MEDS: LEVOFLOXACIN 500 MG TABLET PO SCH (09:18)
[2017-04-07] MEDS: SPIRONOLACTONE 25 MG TABLET PO SCH (09:18)
[2017-04-07] MEDS: LISINOPRIL 10 MG TABLET PO SCH (09:18)
[2017-04-07] MEDS: FAMOTIDINE 20 MG TABLET PO SCH (09:18)
[2017-04-07] MEDS: DIGOXIN 0.25 MG TABLET PO SCH (09:18)
[2017-04-07] MEDS: FUROSEMIDE 80 MG TABLET PO SCH (09:18)
[2017-04-07 11:26] VITALS: BP 126/114
--- NOTE | 2017-04-07 12:04 | PDOC DISCHARGE SUMMARY ---
General - Admit/Disc Date/PCP Admission Date/Primary Care Provider: 03/29/17 19:12 JIA SEVILLA MD Discharge Date: 04/07/17 - Discharge Diagnosis (1) Acute combined systolic and diastolic heart failure Is this a current diagnosis for this admission?: YesSummary: Currently all stable with EF is only 20 t0 25 % Continues to Lasix 80 mg p.o. twice a day Follow with the cardiologyDr. Amelia Huizar suggest to he will referred to the outpatient Man for further evaluations (2) Chronic atrial fibrillation Is this a current diagnosis for this admission?: YesSummary: Continues to Xarelto in the digoxin and Coreg (3) Pneumonia Is this a current diagnosis for this admission?: YesSummary: All resolved (4) Syncope Is this a current diagnosis for this admission?: YesSummary: Currently all stable patient already seen by cardiology and follow as outpatients. Patient already have AICD placement. (5) Gastroesophageal reflux Is this a current diagnosis for this admission?: YesSummary: Currently stable with continues omeprazole - Additional Information Discharge Diet: Cardiac Discharge Activity: Activity As Tolerated, Balance Activity w/Rest, Weigh Daily Home Medications: Atorvastatin Calcium [Lipitor 10 mg Tablet] 10 mg PO DAILY 03/29/17 Carvedilol [Coreg 25 mg Tablet] 25 mg PO Q12 03/29/17 Furosemide [Lasix 80 mg Tablet] 80 mg PO BID 03/29/17 Omeprazole 40 mg PO DAILY 03/29/17 Ranitidine HCl [Zantac 150 mg Tablet] 150 mg PO QHS 03/29/17 Rivaroxaban [Xarelto] 20 mg PO DAILY 03/29/17 Digoxin [Lanoxin 0.25 mg Tablet] 0.25 mg PO DAILY #30 tablet 04/07/17 Lisinopril [Prinivil 10 mg Tablet] 10 mg PO Q12 #60 tablet 04/07/17 Midodrine HCl [Proamatine 5 mg Tablet] 5 mg PO 0600,1100,1600 #90 tablet Spironolactone [Aldactone 25 mg Tablet] 25 mg PO DAILY #30 tablet 04/07/17 History of Present Illness History of Present Illness: ELIZABETH DEAN is a 51 year old male This is a 51-year-old male present with the syncopal episode and initial workup including a CT head and all cardiac workup was negative. Hospital Course Hospital Course: There is a 51-year-old male who present in the emergency department with a syncopal episode and congestive heart failure and patient was put in the hospital for further evaluations and initial CT head and cardiac workup was all negative Patient ALREADY have AICD placement and a history of the chronic A. fib and the Dr. Huizar was consulted and patient underwent for the several medications changeBy Dr. Huizar Patient's otherwise remained stable patient's blood pressure was running low and was put on midron By Dr. Cisneros Patient's otherwise walk in the hallway without any problem and patient's p.o. intake is good. Patient's denied any chest pain no shortness of the breath Very extensive discussions with the patient and his sister with the patient's all current conditions and change in the medicDiscussed with the Dr. Huizar about the patient's current conditions with the cardiac StripAnd suggest the follow as outpatients Patient's last potassium and BMP was all stable Physical Exam Vital Signs: Temp Pulse Resp BP Pulse Ox 98.1 F 73 16 126/114 H 98 04/07/17 11:23 04/07/17 11:23 04/07/17 11:23 04/07/17 11:23 04/07/17 11:23 Intake & Output 04/06/17 04/07/17 04/08/17 06:59 06:59 06:59 Intake Total 1395 1423 Output Total 2825 2325 Balance -1430 -902 Weight 140.6 kg 144.8 kg General appearance: PRESENT: no acute distress, well-developed, well-nourished Head exam: PRESENT: atraumatic, normocephalic Eye exam: PRESENT: conjunctiva pink, EOMI, PERRLA. ABSENT: scleral icterus Ear exam: PRESENT: normal external ear exam Mouth exam: PRESENT: moist, tongue midline Neck exam: PRESENT: full ROM. ABSENT: carotid bruit, JVD, lymphadenopathy, thyromegaly Respiratory exam: PRESENT: clear to auscultation donna Cardiovascular exam: PRESENT: RRR. ABSENT: diastolic murmur, rubs, systolic murmur Pulses: PRESENT: normal dorsalis pedis pul, +2 pedal pulses bilateral Vascular exam: PRESENT: normal capillary refill GI/Abdominal exam: PRESENT: normal bowel sounds, soft. ABSENT: distended, guarding, mass, organolmegaly, rebound, tenderness Rectal exam: PRESENT: deferred Neurological exam: PRESENT: alert, awake, oriented to person, oriented to place , oriented to time, oriented to situation, CN II-XII grossly intact. ABSENT: motor sensory deficit Psychiatric exam: PRESENT: appropriate affect, normal mood. ABSENT: homicidal ideation, suicidal ideation Skin exam: PRESENT: dry, intact, warm. ABSENT: cyanosis, rash Results Laboratory Results: 04/02/17 05:42 04/07/17 08:55 04/07/17 08:55 Sodium 141.3 Potassium 4.5 Chloride 100 Carbon Dioxide 28 Anion Gap 13 BUN 23 H Creatinine 1.32 H Est GFR ( Amer) > 60 Est GFR (Non-Af Amer) 57 L Glucose 93 Calcium 9.3 Magnesium 2.3 03/29/17 03/29/17 03/30/17 20:07 20:07 02:15 Creatine Kinase 173 H 208 H CK-MB (CK-2) 0.58 Troponin I < 0.012 NT-Pro-B Natriuret Pep 3120 H 03/30/17 03/30/17 03/30/17 02:15 07:55 07:55 Creatine Kinase 211 H CK-MB (CK-2) 0.56 0.76 Troponin I < 0.012 < 0.012 NT-Pro-B Natriuret Pep 03/30/17 03/30/17 03/30/17 11:44 11:44 16:54 Creatine Kinase 227 H 211 H CK-MB (CK-2) 0.73 Troponin I < 0.012 NT-Pro-B Natriuret Pep 03/30/17 03/30/17 03/30/17 16:54 23:23 23:23 Creatine Kinase 172 H CK-MB (CK-2) 0.60 0.72 Troponin I < 0.012 < 0.012 NT-Pro-B Natriuret Pep 04/04/17 06:47 Creatine Kinase CK-MB (CK-2) Troponin I NT-Pro-B Natriuret Pep 2620 H Impressions: Head CT 03/29/17 13:19 IMPRESSION: NORMAL BRAIN CT WITHOUT CONTRAST. Renal Ultrasound 03/29/17 18:52 IMPRESSION: Incidental simple cyst involving the right kidney. Otherwise unremarkable sonographic appearance of the kidneys and bladder. Chest CT 03/30/17 00:00 IMPRESSION: GROUND-GLASS OPACITIES THROUGHOUT THE RIGHT LUNG PROBABLY DUE TO PNEUMONIA. ASYMMETRIC PULMONARY EDEMA COULD GIVE A SIMILAR APPEARANCE. Esophagus X-Ray 04/01/17 00:00 IMPRESSION: No evidence of significant esophageal stricture or mass. Chest X-Ray 04/03/17 00:00 IMPRESSION: NO SIGNIFICANT RADIOGRAPHIC FINDING IN THE CHEST. Plan Time Spent: Greater than 30 Minutes - Follow outpatients cardiology for the stress test and further evaluate the Man. Following office in 1 week we will recheck the Chem-7
--- NOTE | 2017-04-07 13:48 | PROGRESS NOTE E ---
Progress Note NAME: ELIZABETH DEAN : 1965 AGE: 51Y DATE: 04/07/2013 ROOM: 314 SUBJECTIVE: The patient denies any chest pain or discomfort. The patient is in atrial fibrillation with controlled ventricular response. There is no PND, orthopnea, chest pain or discomfort. There are no anginal symptoms. There are no TIA or CVA symptoms. There is no bleeding on Xarelto. OBJECTIVE: GENERAL: On examination, the patient is well groomed, in no acute distress. VITAL SIGNS: He is afebrile with a temperature of 98.4 degrees Fahrenheit, pulse is 72 beats per minute, blood pressure is 97/69, respirations are 12 per minute, O2 saturation is 99% on room air. HEENT: Head is atraumatic, normocephalic. Eyes, pupils are equal, round, regular, reactive to light and accommodation. Extraocular movements are normal. There is no conjunctival pallor. There is no scleral icterus. ENT is negative. NECK: Neck is supple. There is no JVD. Carotids equal. There is no bruit. There is no goiter. There is no lymphadenopathy. Trachea is central. LUNGS: Clear to auscultation and percussion. S1, S2 are heard. There is no S3 gallop. There is no S4 gallop. S1 is of variable intensity. There is a systolic murmur in the left sternal border at the apex. There is no rub. ABDOMEN: Soft, nontender. There is no hepatosplenomegaly. Bowel sounds are well heard. There are no tender or masses. EXTREMITIES: Femorals are deep. Femorals are diminished. There is no femoral bruit. Leg pulses are diminished. There is no pedal edema. There is no DVT or cellulitis. There is no calf tenderness. There is no cyanosis or clubbing. CENTRAL NERVOUS SYSTEM: The patient is conscious, awake, alert, oriented x3 with no focal deficits. PSYCHIATRIC: The patient's judgment and insight are intact. His affect is normal. LABORATORY: The patient's sodium is 141.3, potassium 4.5, chloride 100, CO2 is 28. The patient's BUN is 23, creatinine is 1.32. GFR is greater than 60. Calcium is 9.3. Magnesium is 2.3. The patient's 24-hour intake is 1423 mL. Output is 2325 mL. IMPRESSION: 1. HYPOTENSION. There is good response to midodrine. His blood pressure this morning is slightly on the lower side. 2. ACUTE KIDNEY INJURY ON ADMISSION, NOW THE GFR IS NORMAL. 3. SYNCOPE MOST LIKELY SECONDARY TO HYPOTENSION. 4. ATRIAL FIBRILLATION WITH CONTROLLED VENTRICULAR RESPONSE. 5. RIGHT LOWER LOBE PNEUMONIA RESOLVED. 6. CORONARY ARTERY DISEASE STABLE WITH HISTORY OF MYOCARDIAL INFARCTION. No anginal symptoms at present. The patient is on Coreg and aspirin. Would recommend that the patient have an IV Lexiscan Cardiolite stress test to be done as an outpatient. 7. HISTORY OF DIAGONAL STENT IN 2009, AFTER AN [place], PATENT STENT SITE BY CARDIAC CATHETERIZATION IN 2011 AND WITH NO NEW LESIONS. 8. CHEST TIGHTNESS, NO EVIDENCE OF MYOCARDIAL INFARCTION, RESOLVED. 9. ISCHEMIC CARDIOMYOPATHY WITH SEVERELY REDUCED LV EJECTION FRACTION. Continue Coreg, LFO inhibitor, digoxin, aspirin, and spironolactone. The patient is also on midodrine for the blood pressure. The patient is also on Xarelto for atrial fibrillation and for stroke prophylaxis. 10. HISTORY OF CHRONIC SYSTOLIC HEART FAILURE. 11. HISTORY OF VENTRICULAR TACHYCARDIA, NO RECURRENCE. 12. AICD PLACEMENT. No recent firing of the AICD. 13. HISTORY OF GOUT. 14. HYPERLIPIDEMIA. 15. HISTORY OF GERD. 16. THERE IS NO DEFINITE EVIDENCE OF DECOMPENSATED CONGESTIVE HEART FAILURE AT PRESENT. 17. MORBID OBESITY. 18. MEDICATION NONCOMPLIANCE. RECOMMENDATIONS: Continue on beta blockers, FLO inhibitor, Xarelto, digoxin, statin, aspirin, and spironolactone. Continue the Xarelto for stroke prophylaxis. Note, would recommend that the patient have a IV Lexiscan Cardiolite stress test as an outpatient and also mentioned in view of the patient's young age and with the absence of COPD, renal failure, and diabetes mellitus would place the patient on the transplant list at [facility]. This has been discussed with the patient. The patient will follow up with me. My cell phone number has been given to the patient's sister. To call if there are any problems. Medications have been reviewed. Note, 30 minutes spent on the patient, more than 50% of the time spent on direct patient care and also review of the patient's medications and discussions with Dr. Padilla as to what medications the patient needs to go out with. The patient needs midodrine at 5 mg at 6 a.m., 11 a.m., and 3 p.m. daily. Better to take the dose of the midodrine at the appointed time has been discussed with the patient. The last dose should be at least 4 to 6 hours prior to his bedtime. The patient will follow up with me in the office. Note, this is a high complexity medical decision making involved in this case in view of the patient's multiple comorbidities. We will follow with you as an outpatient. We will sign off for now. DICTATING PHYSICIAN: ELISABETH MONZON M.D. [id number] PHY#: [id number] ID: [id number] JOB#: [id number] ACCT: [id number] cc: >
== END 2017-04-07 12:40 | disposition home or self-care (01) | DRG 153 ==
LOC: ER 12:49 → EH 16:01 → UNDOADMIN 16:01 → 3W 17:23 → EH 17:23 → 3W 19:12
PROVIDERS: ADMIT Internal Medicine; ATTEND Family Medicine
PROC: 009U3ZX Drainage of Spinal Canal, Percutaneous Approach, Diagnostic (ICD-10-PCS; principal; 2017-04-01)
DX: J32.9 Chronic sinusitis, unspecified (principal); D61.818 Other pancytopenia; R51 Headache; I10 Essential (primary) hypertension; B18.2 Chronic viral hepatitis C; K74.60 Unspecified cirrhosis of liver; E78.5 Hyperlipidemia, unspecified; Z79.899 Other long term (current) drug therapy
CPT/HCPCS: 36415; 70450; 71010; 71020; 71250; 74220; 76770; 80048; 80053; 80061; 80162; 80307; 81001; 82550; 82553; 82962; 83036; 83690; 83735; 83880; 84100; 84443; 84484; 85025; 85610; 85730; 93005; 93010; 93306; 99285; J1160; J1956; J3490; J7030

== ENCOUNTER → 2017-04-14 | Outpatient (CLI) | payer MEDICARE ==
[2017-04-14 12:38] LABS: ABSOLUTE BASOPHILS # (AUTO) 0.1 10^3/uL (0.0-0.2); ABSOLUTE EOSINOPHILS # (AUTO) 0.2 10^3/uL (0.0-0.6); ABSOLUTE LYMPHOCYTES (AUTO) 1.9 10^3/uL (0.5-4.7); ABSOLUTE MONOCYTES (AUTO) 0.7 10^3/uL (0.1-1.4); ABSOLUTE NEUT (AUTO) 3.3 10^3/uL (1.7-8.2); EOSINOPHILS % (AUTO) 2.8 % (0-6); HEMATOCRIT 46.8 % (37.9-51.0); HEMOGLOBIN 15.1 g/dL (13.5-17.0); HGB HCT DIFFERENCE -1.5; LYMPHOCYTES % (AUTO) 31.8 % (13-45); MEAN CORPUSCULAR HGB CONC 32.3 g/dL (32.0-36.0); MEAN CORPUSCULAR VOLUME 87 fl (80-97); MONOCYTES % (AUTO) 10.8 % (3-13); RED CELL DISTRIBUTION WIDTH 14.1 % (11.5-14.0); SEGMENTED NEUTROPHILS % (AUTO) 53.6 % (42-78); WHITE BLOOD COUNT 6.1 10^3/uL (4.0-10.5)
[2017-04-14 13:01] LABS: ALANINE AMINOTRANSFERASE 58 U/L (21-72); ALBUMIN 4.5 g/dL (3.5-5.0); ALKALINE PHOSPHATASE 65 U/L (38-126); ANION GAP 11 (5-19); ASPARTATE AMINO TRANSFERASE 33 U/L (17-59); BILIRUBIN,DIRECT 0.3 mg/dL (0.0-0.4); BILIRUBIN,TOTAL 0.9 mg/dL (0.2-1.3); BLOOD UREA NITROGEN 40 mg/dL (7-20); CALCIUM 9.5 mg/dL (8.4-10.2); CARBON DIOXIDE 24 mmol/L (22-30); CHLORIDE 102 mmol/L (98-107); CREATININE RESULT 1.53 mg/dL (0.52-1.25); DIGOXIN 1.67 ng/mL (0.8-2.0); GLUCOSE 114 mg/dL (75-110); SODIUM 136.8 mmol/L (137-145); TOTAL PROTEIN 8.6 g/dL (6.3-8.2)
== END ==
LOC: OD 12:05
PROVIDERS: ATTEND Family Medicine
DX: I42.9 Cardiomyopathy, unspecified (principal); E78.5 Hyperlipidemia, unspecified
CPT/HCPCS: 36415; 80053; 80162; 85025

== ENCOUNTER → 2017-04-16 | Outpatient (CLI) | payer MEDICARE ==
--- NOTE | 2017-04-16 08:44 | RADIOLOGY REPORT (SQ) ---
EXAM DESCRIPTION: U/S ABDOMEN LIMITED W/O DOP COMPLETED DATE/TIME: 04/16/2017 7:33 am REASON FOR STUDY: N/V (R11.2) R11.2 NAUSEA WITH VOMITING, UNSPECIFIED COMPARISON: None. TECHNIQUE: Dynamic and static grayscale images acquired of the abdomen and recorded on PACS. Additio nal selected color Doppler and spectral images recorded. LIMITATIONS: None. FINDINGS: PANCREAS: Not visualized due to overlying bowel gas. LIVER: No masses. Echotexture normal. LIVER VASCULATURE: Normal directional flow of the main portal vein and hepatic veins. GALLBLADDER: No stones. Normal wall thickness. No pericholecystic fluid. ULTRASOUND-DETECTED RUBI'S SIGN: Negative. INTRAHEPATIC DUCTS AND COMMON DUCT: CBD and intrahepatic ducts normal caliber. No filling defects. INFERIOR VENA CAVA: Normal flow. AORTA: No aneurysm. RIGHT KIDNEY: Normal size. Normal echogenicity. Simple cyst noted in the upper pole measuring 2.1 x 1.7 x 1.5 cm. No solid or suspicious masses. No hydronephrosis. No calcifications. PERITONEAL AND RIGHT PLEURAL SPACE: No ascites or effusions. OTHER: No other significant findings. IMPRESSION: Simple right renal cyst. Otherwise unremarkable right upper quadrant ultrasound. TECHNICAL DOCUMENTATION: JOB ID: [id number] [employer]- All Rights Reserved
== END ==
LOC: RAD 07:05
PROVIDERS: ATTEND Family Medicine
DX: R11.2 Nausea with vomiting, unspecified (principal); N28.1 Cyst of kidney, acquired
CPT/HCPCS: 76705

== ENCOUNTER → 2017-04-21 | Outpatient (CLI) | payer MEDICARE ==
--- NOTE | 2017-04-21 14:59 | RADIOLOGY REPORT (SQ) ---
EXAM DESCRIPTION: NM HIDA SCAN WITH CCK COMPLETED DATE/TIME: 04/21/2017 2:51 pm REASON FOR STUDY: RIGHT UPPER QUADRANT ABDOMINAL TENDERNESS R10.811 RIGHT UPPER QUADRANT ABDOMINAL TENDERNESS COMPARISON: None. RADIONUCLIDE AND DOSE: DOSAGE RADIONUCLIDE: 5.36 millicuries Tc99m Mebrofenin. DOSAGE CCK: 2.5 micrograms. DOSAGE MORPHINE: Not required. The route of agent administration: Intravenous TECHNIQUE: Serial imaging right upper quadrant up to 60 minutes following injection of radionuclide. CCK injected after gallbladder visualized. LIMITATIONS: None. FINDINGS: LIVER: Normal visualization without areas of photopenia. INTRA AND EXTRAHEPATIC BILE DUCTS: Normal accumulation of activity. GALLBLADDER: Normal visualization. Calculated Ejection Fraction of 7.8%. Below the normal value of 3 5% or greater. PHYSICAL RESPONSE: Patients presenting complaint was reproduced. OTHER: No other significant finding. IMPRESSION: LOW GALLBLADDER EJECTION FRACTION. EVIDENCE FOR BILIARY DYSKINESIS. NO CYSTIC OR COMMO N DUCT OBSTRUCTION. TECHNICAL DOCUMENTATION: JOB ID: [id number] [employer]- All Rights Reserved
== END ==
LOC: RAD 11:39
PROVIDERS: ATTEND Internal Medicine Gastroenterology
DX: R10.811 Right upper quadrant abdominal tenderness (principal); R11.2 Nausea with vomiting, unspecified; R63.0 Anorexia
CPT/HCPCS: 78227; A9537; Q9969; J2805